=== PATIENT | male | born 1960 | race Caucasian/White ===

== ENCOUNTER 2019-04-02 21:02 | Inpatient (IN) | payer MEDICAID ==
--- NOTE | 2019-04-02 21:22 | ER Document Report ---
ED Respiratory Problem - General Chief Complaint: Shortness Of Breath Stated Complaint: DIFFICULTY BREATHING Time Seen by Provider: 04/02/19 21:22 Mode of Arrival: Medic Information source: Patient Cannot obtain history due to: Other - Respiratory distress on arrival. TRAVEL OUTSIDE OF THE [place] IN LAST 30 DAYS: No - HPI Onset: Other - Unknown time. EMS received a call to come to the scene of his residence and found patient in respiratory distress with hypoxia sats were in the 80s. They applied CPAP and breathing treatments in route. By the time of arrival to the ED sats were in the 90s. Severity: Moderate Short of Breath: Severe Cough: Nonproductive EMS treatments: Bronchodilators, Oxygen Associated symptoms: Difficulty breathing, Wheezing Similar symptoms previously: Yes Recently seen / treated by doctor: Yes - Unknown time of seen physician in the past - Related Data Allergies/Adverse Reactions: aspirin [Aspirin] Allergy (Verified 11/21/12 12:54) Home Medications: Isosorbide, Lasix, Metoprolol, Spirinolactone, Past Medical History - Social History Smoking Status: Unknown if Ever Smoked Lives with: Family Family History: Reviewed & Not Pertinent Patient has suicidal ideation: No Patient has homicidal ideation: No - Past Medical History Cardiac Medical History: Reports: Hx Heart Attack, Hx Hypercholesterolemia, Hx Hypertension Pulmonary Medical History: Reports: Hx COPD Past Surgical History: Reports: Hx Cardiac Catheterization - X 3, no stents Review of Systems - Review of Systems Respiratory: Short of breath Physical Exam - Vital signs Vitals: Resp Pulse Ox 21 H 98 04/02/19 21:05 04/02/19 21:05 Interpretation: Normal - Notes Notes: Significant severe shortness of breath on arrival on CPAP. Patient was lethargic appearing. - General General appearance: Appears well, Alert - HEENT Head: Normocephalic, Atraumatic Eyes: Normal Pupils: PERRL - Respiratory Respiratory status: Respiratory distress, Depressed respirations, Labored, Tachypnea - With a long Chest status: Nontender Breath sounds: Normal, Decreased air movement Chest palpation: Normal - Cardiovascular Rhythm: Regular Heart sounds: Normal auscultation Murmur: No - Abdominal Inspection: Normal Distension: No distension Bowel sounds: Normal Tenderness: Nontender Organomegaly: No organomegaly - Back Back: Normal, Nontender - Extremities General upper extremity: Normal inspection, Nontender, Normal color, Normal ROM, Normal temperature General lower extremity: Normal inspection, Nontender, Normal color, Normal ROM, Normal temperature, Normal weight bearing. No: Samantha's sign Calf: Other - Brawny edema in both lower extremities down to the feet Ankle: Edema Foot: Edema - Neurological Neuro grossly intact: Yes Cognition: Normal Orientation: AAOx4 [place] Coma Scale Eye Opening: Spontaneous [place] Coma Scale Verbal: Oriented [place] Coma Scale Motor: Obeys Commands [place] Coma Scale Total: 15 Speech: Normal Motor strength normal: LUE, RUE, LLE, RLE Sensory: Normal - Psychological Associated symptoms: Normal affect, Normal mood - Skin Skin Temperature: Warm Skin Moisture: Dry Skin Color: Normal, Blackened Skin irregularity: Plaque, Rash Location of irregularity: Other - Lower extremity Character of irregularity: Other - Dry plaque like hypertrophied skin scaly in nature Irregularity with: Scaling, Crusting Course - Re-evaluation Re-evalutation: 04/03/19 06:51 Resting comfortably. Diuresed 2300 mm mils of urine after IV Lasix. Pulse oximetry shows 91 to 93% on biPAP. - Vital Signs Vital signs: Temp Pulse Resp BP Pulse Ox 98.4 F 88 26 H 163/85 H 92 04/03/19 03:51 04/03/19 03:51 04/03/19 04:29 04/03/19 03:51 04/03/19 04:29 - Laboratory Result Diagrams: 04/02/19 20:50 04/03/19 04:56 Laboratory results interpreted by me: 04/02/19 04/02/19 04/02/19 20:50 20:50 20:50 MCV 98 H RDW 16.0 H D-Dimer 1.15 H Carbonic Acid ABG pCO2 ABG pO2 ABG O2 Saturation Creatine Kinase 31 L NT-Pro-B Natriuret Pep Urine Protein Urine Ketones Urine Urobilinogen 04/02/19 04/02/19 04/02/19 20:50 22:04 22:08 MCV RDW D-Dimer Carbonic Acid 1.01 L ABG pCO2 33.7 L ABG pO2 59.5 L ABG O2 Saturation 92.2 L Creatine Kinase NT-Pro-B Natriuret Pep 4680 H Urine Protein 30 H Urine Ketones 20 H Urine Urobilinogen 4.0 H - Diagnostic Test Radiology reviewed: Image reviewed, Reports reviewed Critical Care Note - Critical Care Note Total time excluding time spent on procedures (mins): 40 Discharge - Discharge Clinical Impression: Hypoxia CHF (congestive heart failure) Qualifiers: Heart failure type: unspecified Heart failure chronicity: acute on chronic Qualified Code(s): I50.9 - Heart failure, unspecified COPD (chronic obstructive pulmonary disease) Qualifiers: COPD type: COPD with acute exacerbation Qualified Code(s): J44.1 - Chronic obstructive pulmonary disease with (acute) exacerbation Condition: Fair Disposition: ADMITTED INPATIENT Admitting Provider: Luis Eduardo (Hospitalist) Unit Admitted: Telemetry
[2019-04-02] MEDS ORDERED: NORMAL SALINE 500 ML IV ONE (21:34)
[2019-04-02 21:43] LABS: INTERNATIONAL RATION (INR) 1.07; PARTIAL THROMBOPLASTIN TIME 27.5 SEC (23.5-35.8); PROTHROMBIN TIME 13.9 SEC (11.4-15.4)
[2019-04-02 21:44] LABS: ABSOLUTE EOSINOPHILS # (AUTO) 0.1 10^3/uL (0.0-0.6); ABSOLUTE LYMPHOCYTES (AUTO) 1.2 10^3/uL (0.5-4.7); ABSOLUTE MONOCYTES (AUTO) 0.7 10^3/uL (0.1-1.4); ABSOLUTE NEUT (AUTO) 3.8 10^3/uL (1.7-8.2); BASOPHILS % (AUTO) 0.7 % (0-2); EOSINOPHILS % (AUTO) 2.1 % (0-6); HEMATOCRIT 42.7 % (37.9-51.0); HEMOGLOBIN 14.6 g/dL (13.5-17.0); LYMPHOCYTES % (AUTO) 19.8 % (13-45); MEAN CORPUSCULAR HEMOGLOBIN 33.3 pg (27.0-33.4); MEAN CORPUSCULAR HGB CONC 34.1 g/dL (32.0-36.0); MEAN CORPUSCULAR VOLUME 98 fl (80-97); MONOCYTES % (AUTO) 11.7 % (3-13); PLATELET COUNT 152 10^3/uL (150-450); RED BLOOD COUNT 4.38 10^6/uL (4.35-5.55); SEGMENTED NEUTROPHILS % (AUTO) 65.7 % (42-78); TOTAL CELLS COUNTED % (AUTO) 100 %; WHITE BLOOD COUNT 5.8 10^3/uL (4.0-10.5)
[2019-04-02 21:46] LABS: D-DIMER 1.15 ug/mL (0.00-0.50)
[2019-04-02 21:58] LABS: ALKALINE PHOSPHATASE 80 U/L (38-126); ANION GAP 10 (5-19); ASPARTATE AMINO TRANSFERASE 17 U/L (17-59); BILIRUBIN,DIRECT 0.3 mg/dL (0.0-0.4); BILIRUBIN,TOTAL 1.2 mg/dL (0.2-1.3); BLOOD UREA NITROGEN 13 mg/dL (7-20); CALCIUM 8.6 mg/dL (8.4-10.2); CARBON DIOXIDE 27 mmol/L (22-30); CHLORIDE 103 mmol/L (98-107); CREATINE KINASE 31 U/L (55-170); GLUCOSE 96 mg/dL (75-110); POTASSIUM 4.4 mmol/L (3.6-5.0); TOTAL PROTEIN 7.1 g/dL (6.3-8.2)
[2019-04-02 22:18] LABS: APPEARANCE,URINE CLEAR; BILIRUBIN,URINE NEGATIVE (NEGATIVE); COLOR,URINE YELLOW; GLUCOSE, URINE NEGATIVE (NEGATIVE); KETONES,URINE 20 mg/dL (NEGATIVE); LEUKOCYTE ESTERASE,URINE NEGATIVE (NEGATIVE); NITRITE,URINE NEGATIVE (NEGATIVE); PROTEIN,URINE 30 mg/dL (NEGATIVE); URINE SPECIFIC GRAVITY 1.023
[2019-04-02 22:33] LABS: URINE AMPHETAMINES SCREEN NEGATIVE; URINE BARBITURATES SCREEN NEGATIVE; URINE BENZODIAZEPINES SCREEN NEGATIVE; URINE COCAINE SCREEN NEGATIVE; URINE MARIJUANA (THC) SCREEN NEGATIVE; URINE METHADONE SCREEN NEGATIVE; URINE PHENCYCLIDINE SCREEN NEGATIVE
[2019-04-02 22:38] LABS: ARTERIAL BLOOD BASE EXCESS -0.2 mmol/L; ARTERIAL BLOOD H2CO3 1.01 mmol/L (1.05-1.35); ARTERIAL BLOOD HCO3 23.1 mmol/L (20-24); ARTERIAL BLOOD O2 SATURATION 92.2 % (94-98); ARTERIAL BLOOD PCO2 33.7 mmHg (35-45); ARTERIAL BLOOD PH 7.45 (7.35-7.45); ARTERIAL BLOOD PO2 59.5 mmHg (80-100); ARTERIAL BLOOD TOTAL CO2 24.1 mmol/L (23-27)
[2019-04-02 22:39] LABS: ARTERIAL BLOOD FIO2 50%
[2019-04-02] MEDS ORDERED: FUROSEMIDE INJ/PF 20 MG/2 ML SDV IV ONE (22:53)
--- NOTE | 2019-04-02 22:53 | RADIOLOGY REPORT (SQ) ---
EXAM DESCRIPTION: XR ABDOMEN SUPINE AND ERECT WITH CHEST (ABD ACUTE SERIES) COMPLETED DATE/TME: 04/02/2019 21:29 CLINICAL HISTORY: 58 years, Male, sobr/abd distension COMPARISON: 11/21/2012 chest NUMBER OF VIEWS: 3 TECHNIQUE: Upright chest with supine and erect views of the abdomen LIMITATIONS: None. FINDINGS: Cardiomegaly. The bowel gas pattern is nonspecific. Osteopenia. Increased opacity over the lateral left lung base is likely secondary to overlying soft tissues. However there is also some retrocardiac infiltrate suggested. No pneumothorax. No free air under the hemidiaphragms. Nonspecific nonobstructive bowel gas pattern. Abundant stool in the colon. IMPRESSION: Cardiomegaly. Retrocardiac infiltrate. Nonspecific, nonobstructive bowel gas pattern copyright 2010 [employer]- All Rights Reserved
[2019-04-02] MEDS ORDERED: CEFTRIAXONE INJ 1000 MG VIAL IV ONE (23:00)
--- NOTE | 2019-04-03 01:17 | RADIOLOGY REPORT (SQ) ---
CLINICAL HISTORY: SOBr/elevated d-dimer COMPARISON: None. TECHNIQUE: CT CHEST ANGIOGRAPHY WITHOUT THEN WITH IV CONTRAST on 04/02/2019 11:08 PM [facility] [employer] [facility]. MIPS reconstructions were generated. This exam was performed according to our departmental dose-optimization program, which includes automated exposure control, adjustment of the mA and/or kV according to patient size and/or use of iterative reconstruction technique. MIP images were generated. FINDINGS: Thoracic aorta is normal in course and caliber without aneurysm or dissection. Pulmonary arteries are adequately opacified without acute or chronic filling defects. The heart is moderately enlarged. There is no pericardial effusion. Intrathoracic lymph nodes are not enlarged. There is no pleural effusion, pleural thickening or pneumothorax. Central airways are patent. There is patchy airspace disease in both lower lobes as well as the left upper lobe. There are no acute abnormalities within the limited images of the upper abdomen. There are no acute osseous findings. No suspicious bony lesions. IMPRESSION: Patchy areas of possible pneumonia bilaterally. Cardiomegaly with no aortic dissection or aneurysm. No pulmonary embolus.
[2019-04-03] MEDS ORDERED: PROMETHAZINE HCL INJ 25 MG/1 ML VIAL IV PRN (03:23)
[2019-04-03] MEDS ORDERED: ACETAMINOPHEN 325 MG TABLET PO PRN (03:23)
[2019-04-03] MEDS ORDERED: MAG HYDROX/AL HYDROX/SIMETH SUSP 30 ML UDCUP PO PRN (03:23)
[2019-04-03] MEDS ORDERED: MAGNESIUM HYDROXIDE SUSP 30 ML UDCUP PO PRN (03:23)
[2019-04-03] MEDS ORDERED: NICOTINE 21 MG/24 HR PATCH.TD24 TD PRN (03:30)
[2019-04-03] MEDS ORDERED: HYDRALAZINE HCL INJ/PF 20 MG/1 ML SDV IV PRN (03:30)
[2019-04-03] MEDS ORDERED: METOPROLOL TARTRATE PF/INJ 5 MG/5 ML SDV IV PRN (03:30)
[2019-04-03] MEDS ORDERED: MORPHINE SULFATE 10 MG/ML INJ IV PRN (03:30)
--- NOTE | 2019-04-03 04:57 | PDOC H&P ---
History of Present Illness Admission Date/PCP: 04/03/19 02:20 SHAYAN WEST MD Patient complains of: Dyspnea History of Present Illness: BERNICE KHAN is a 58 year old male who presents the emergency room with acute dyspnea. He admits developing severe dyspnea short time before his arrival in the emergency room. His dyspnea was worsened by any activity or exertion and was accompanied by severe air hunger, increase in swelling of his bilateral his lower extremities and orthopnea. He denies other associated or accompanying signs and symptoms. He denies prior similar episodes. He has not identified any additional aggravating or ameliorating factors for his acute dyspnea. EMS [facility] arrival found the patient have an O2 sat of 80% and treated him with CPAP in route. Upon arrival in the ER patient was converted to BiPAP and had some improvement in his respiratory status. Additionally he was given IV Lasix and had a diuresis of greater than 2000 mL noted. Patient's BNP was also noted to be elevated at greater than 4000 and he was subsequently admitted to the hospital for further evaluation and treatment. Patient is noted to be fairly uncooperative with very short answers due to his dyspnea and frequently not answering at all due to lack of cooperation. Past Medical History Past Medical History: Patient is noted to be fairly uncooperative with very short answers due to his dyspnea and frequently not answering at all due to lack of cooperation. Some information is taken from the best available reliable source. Cardiac Medical History: Reports: Congestive Heart Failure, Coronary Artery Disease, Myocardial Infarction, Hyperlipidema, Hypertension Pulmonary Medical History: Reports: Chronic Obstructive Pulmonary Disease (COPD) Denies: Asthma, Respiratory Failure EENT Medical History: Denies: Cataracts, Ears - Hearing aids Neurological Medical History: Denies: Hemorrhagic CVA, Ischemic CVA, Seizures Endocrine Medical History: Denies: Diabetes Mellitus Type 1, Diabetes Mellitus Type 2, Hyperthyroidism, Hypothyroidism Renal/ Medical History: Denies: Chronic Kidney Disease, Nephrolithiasis Malignancy Medical History: Reports: None GI Medical History: Denies: Cirrhosis, Crohn's Disease, Hepatitis, Ulcerative Colitis Musculoskeltal Medical History: Denies: Arthritis, Gout Skin Medical History: Reports: Other - Chronic severe venous stasis skin changes of the lower extremities Denies: Eczema, Psoriasis Psychiatric Medical History: Reports: Tobacco Dependency Denies: Alcohol Dependency, Substance Abuse Traumatic Medical History: Reports: None Hematology: Denies: Anemia, Bleeding Tendencies Infectious Medical History: Reports: None Past Surgical History Past Surgical History: Reports: Cardiac Catheterization - X 3, no stents Social History Information Source: Patient Lives with: Alone Smoking Status: Current Every Day Smoker Electronic Cigarette use?: No Frequency of Alcohol Use: Occasional Hx Recreational Drug Use: No Drugs: None Hx Prescription Drug Abuse: No - Advance Directive Resuscitation Status: Full Code Surrogate healthcare decision maker:: Trent Duval Family History Family History: Patient would not provide information Parental Family History Reviewed: No Children Family History Reviewed: No Sibling(s) Family History Reviewed.: No Medication/Allergy Home Medications: Bumetanide [Bumex 1 mg Tablet] 1 tab PO DAILY 11/21/12 Furosemide [Lasix 40 mg Tablet] 10 mg PO QAM #30 tablet 11/21/12 Allergies/Adverse Reactions: aspirin [Aspirin] Allergy (Verified 11/21/12 12:54) Review of Systems Constitutional: ABSENT: chills, fever(s) Eyes: ABSENT: visual disturbances, other - Eye pain Ears: ABSENT: hearing changes, other - Ear pain Nose, Mouth, and Throat: ABSENT: headache(s), mouth pain, sore throat Cardiovascular: PRESENT: dyspnea on exertion, edema, orthropnea. ABSENT: chest pain, palpitations Respiratory: PRESENT: as per HPI, dyspnea. ABSENT: cough Gastrointestinal: ABSENT: abdominal pain, constipation, diarrhea, nausea, vomiting Genitourinary: ABSENT: dysuria, hematuria Musculoskeletal: ABSENT: back pain, joint swelling, muscle weakness Integumentary: ABSENT: pruritus, rash Neurological: ABSENT: confusion, convulsions, focal weakness, memory loss, syncope Psychiatric: ABSENT: anxiety, depression Endocrine: ABSENT: cold intolerance, heat intolerance Hematologic/Lymphatic: ABSENT: easy bleeding, easy bruising Allergic/Immunologic: ABSENT: seasonal rhinorrhea Physical Exam Vital Signs: Temp Pulse Resp BP Pulse Ox 97.6 F 22 H 146/75 H 91 L 04/02/19 21:25 04/03/19 02:01 04/03/19 02:01 04/03/19 02:01 Intake & Output 04/01/19 04/02/19 04/03/19 23:59 23:59 23:59 Intake Total 85 Output Total 3200 Balance 85 -3200 General appearance: PRESENT: no acute distress, cooperative, morbidly obese Head exam: PRESENT: atraumatic, normocephalic Eye exam: PRESENT: conjunctiva pink. ABSENT: conjunctival injection, scleral icterus Ear exam: PRESENT: normal external ear exam. ABSENT: bleeding, drainage Mouth exam: PRESENT: dry mucosa, neck supple Neck exam: PRESENT: JVD - Bilateral at 30 degrees. ABSENT: thyromegaly, tracheal deviation Respiratory exam: PRESENT: decreased breath sounds - Breath sounds decreased at the bases bilaterally, prolonged expiratory phas - Minimally prolonged expiratory phase noted, rales - Fine rales noted in the bilateral lower one half of both lung blanco, symmetrical, wheezes - Minimal expiratory wheezes noted Cardiovascular exam: PRESENT: gallop - S4 gallop rhythm, RRR. ABSENT: clicks, rubs Pulses: PRESENT: normal radial pulses, normal dorsalis pedis pul Vascular exam: PRESENT: normal capillary refill. ABSENT: pallor GI/Abdominal exam: PRESENT: normal bowel sounds, soft Rectal exam: PRESENT: deferred Extremities exam: PRESENT: pedal edema - 3+ pitting edema, other - 3+ pitting edema of the bilateral lower extremities to the mid thighs. ABSENT: joint swelling Musculoskeletal exam: ABSENT: deformity, dislocation Neurological exam: PRESENT: alert, oriented to person, oriented to place, oriented to time, oriented to situation, CN II-XII grossly intact, motor sensory deficit Psychiatric exam: PRESENT: appropriate affect, normal mood Skin exam: PRESENT: dry, intact, warm, other - Chronic venous stasis skin changes of the bilateral lower extremities noted. ABSENT: jaundice, rash, urticaria Results Laboratory Results: 04/02/19 20:50 04/02/19 20:50 04/02/19 04/02/19 04/02/19 20:50 20:50 20:50 WBC 5.8 RBC 4.38 Hgb 14.6 Hct 42.7 MCV 98 H MCH 33.3 MCHC 34.1 RDW 16.0 H Plt Count 152 Seg Neutrophils % 65.7 Carbonic Acid HCO3/H2CO3 Ratio ABG pH ABG pCO2 ABG pO2 ABG HCO3 ABG O2 Saturation ABG Base Excess FiO2 Sodium 139.7 Potassium 4.4 Chloride 103 Carbon Dioxide 27 Anion Gap 10 BUN 13 Creatinine 0.94 Est GFR ( Amer) > 60 Glucose 96 Lactic Acid Calcium 8.6 Total Bilirubin 1.2 AST 17 Alkaline Phosphatase 80 Total Protein 7.1 Albumin 4.0 Lipase 57.2 Urine Color Urine Appearance Urine pH Ur Specific [place] Urine Protein Urine Glucose (UA) Urine Ketones Urine Blood Urine Nitrite Ur Leukocyte Esterase Urine WBC (Auto) Urine RBC (Auto) 04/02/19 04/02/19 04/02/19 21:10 22:04 22:08 WBC RBC Hgb Hct MCV MCH MCHC RDW Plt Count Seg Neutrophils % Carbonic Acid 1.01 L HCO3/H2CO3 Ratio 22:1 ABG pH 7.45 ABG pCO2 33.7 L ABG pO2 59.5 L ABG HCO3 23.1 ABG O2 Saturation 92.2 L ABG Base Excess -0.2 FiO2 50% Sodium Potassium Chloride Carbon Dioxide Anion Gap BUN Creatinine Est GFR ( Amer) Glucose Lactic Acid 1.4 Calcium Total Bilirubin AST Alkaline Phosphatase Total Protein Albumin Lipase Urine Color YELLOW Urine Appearance CLEAR Urine pH 6.0 Ur Specific [place] 1.023 Urine Protein 30 H Urine Glucose (UA) NEGATIVE Urine Ketones 20 H Urine Blood NEGATIVE Urine Nitrite NEGATIVE Ur Leukocyte Esterase NEGATIVE Urine WBC (Auto) 1 Urine RBC (Auto) 3 04/02/19 04/02/19 04/02/19 20:50 20:50 20:50 Creatine Kinase 31 L Troponin I < 0.012 NT-Pro-B Natriuret Pep 4680 H Impressions: Acute Abdomen Series 04/02/19 21:29 IMPRESSION: Cardiomegaly. Retrocardiac infiltrate. Nonspecific, nonobstructive bowel gas pattern copyright 2011 [employer]- All Rights Reserved Chest/Abdomen CTA 04/02/19 23:08 IMPRESSION: Patchy areas of possible pneumonia bilaterally. Cardiomegaly with no aortic dissection or aneurysm. No pulmonary embolus. Assessment and Plan - Diagnosis (1) Acute pulmonary edema with congestive heart failure Is this a current diagnosis for this admission?: Yes (2) Acute respiratory failure with hypoxia Is this a current diagnosis for this admission?: Yes (3) Acute on chronic diastolic congestive heart failure Is this a current diagnosis for this admission?: Yes (4) COPD (chronic obstructive pulmonary disease) Qualifiers: COPD type: unspecified COPD Qualified Code(s): J44.9 - Chronic obstructive pulmonary disease, unspecified Is this a current diagnosis for this admission?: Yes - Plan Summary Summary: Patient will be admitted to the medical floor on telemetry and will receive the customary supportive and symptomatic treatments. He will be seen in consultation by Dr. West for further evaluation and treatment of his congestive heart failure. He will be treated initially with a IV Bumex 1 mg every 6 hours. He will also be treated with Nitrol 2% ointment 1 g applied every 6 hours. He will receive morphine sulfate 2 mg IV every hour as needed severe dyspnea. Serial cardiac enzymes will be obtained. CBCs and metabolic profiles with magnesium levels will be obtained as needed. - Time Time Spent with patient: 15-24 minutes Medications reviewed and adjusted accordingly: Yes Anticipated discharge: Home with Homehealth - Inpatient Certification Based on my medical assessment, after consideration of the patient's comorbidities, presenting symptoms, or acuity I expect that the services needed warrant INPATIENT care.: Yes I certify that my determination is in accordance with my understanding of Medicare's requirements for reasonable and necessary INPATIENT services [42 CFR 412.3e].: Yes Medical Necessity: Significant Comorbidiites Make Outpatient Treatment Too Risky, Need Close Monitoring Due to Risk of Patient Decompensation, Need For Continuous Telemetry Monitoring, Need for Nebulizer Therapy and Monitoring of Response, Risk of Complication if Not Cared For in Hospital
[2019-04-03 05:46] LABS: CREATINE KINASE MB 0.38 ng/mL (<4.55)
[2019-04-03 05:55] LABS: TROPONIN I < 0.012 ng/mL
[2019-04-03 05:57] LABS: ANION GAP 11 (5-19); BLOOD UREA NITROGEN 12 mg/dL (7-20); CALCIUM 9.1 mg/dL (8.4-10.2); CARBON DIOXIDE 29 mmol/L (22-30); CHLORIDE 100 mmol/L (98-107); GLUCOSE 88 mg/dL (75-110)
[2019-04-03] MEDS: HEPARIN SOD (PORCINE) 5,000 UNIT/ML 1 ML VIAL SUBCUT SCH ×3 (06:46→21:12)
[2019-04-03] MEDS: BUMETANIDE INJ/PF 1 MG/4 ML SDV IV SCH ×3 (06:46→17:27)
[2019-04-03] MEDS: NITROGLYCERIN 2% OINTMENT 1 GM PACKET TP SCH ×3 (06:46→17:27)
[2019-04-03] MEDS: FAMOTIDINE 20 MG TABLET PO SCH ×2 (09:31→21:12)
[2019-04-03] MEDS: CLOPIDOGREL BISULFATE 75 MG TABLET PO SCH (09:31)
[2019-04-03] MEDS: AZITHROMYCIN 500 MG in DEXTROSE 5%-WATER 250 ML IV SCH (09:31)
[2019-04-03] MEDS: POTASSIUM CHLORIDE 10 MEQ TABLET.ER PO SCH ×3 (09:31→17:27)
[2019-04-03] MEDS: DOCUSATE SODIUM 100 MG CAPSULE PO SCH (09:31)
[2019-04-03] MEDS: CEFEPIME 1 GM/D5W RTU 1 GM/50 ML RTUPB IV SCH ×2 (09:32→21:12)
[2019-04-03] MEDS ORDERED: INFLUENZA QUAD (6MOS+) 2019-20 VAC 0.5 ML SYR IM ONE (10:08)
[2019-04-03 10:55] LABS: CREATINE KINASE MB < 0.22 ng/mL (<4.55); TROPONIN I < 0.012 ng/mL
[2019-04-03 15:24] LABS: TROPONIN I 0.013 ng/mL
[2019-04-03 15:27] LABS: CREATINE KINASE MB < 0.22 ng/mL (<4.55)
--- NOTE | 2019-04-03 15:58 | Progress Note ---
Provider Note Provider Note: Patient was admitted to the hospital after midnight probable pneumonia. Still on BiPAP and seemed to improve Morning on rounds patient was asleep Dr. Diaz has been consulted. Patient currently on IV Bumex Nitropaste and morphine as needed D-dimer was elevated on admission but CT angiogram only showed pneumonia no PE Patient currently on cefepime and Zithromax. We will continue treatment for pneumonia and CHF BNP is elevated to 4000 Troponin x3 are negative
--- NOTE | 2019-04-03 19:26 | EKG REPORT ---
SEVERITY:- ABNORMAL ECG - SINUS RHYTHM PAIRED VENTRICULAR PREMATURE COMPLEXES LEFT ANTERIOR FASCICULAR BLOCK BORDERLINE T ABNORMALITIES, ANT-LAT LEADS PROLONGED QT INTERVAL : Confirmed by: Susan Diaz MD 03-Apr-2019 19:25:35
[2019-04-04] MEDS: BUMETANIDE INJ/PF 1 MG/4 ML SDV IV SCH ×5 (01:10→23:44)
[2019-04-04] MEDS: NITROGLYCERIN 2% OINTMENT 1 GM PACKET TP SCH ×5 (01:10→23:44)
[2019-04-04 06:31] LABS: ABSOLUTE EOSINOPHILS # (AUTO) 0.1 10^3/uL (0.0-0.6); ABSOLUTE MONOCYTES (AUTO) 0.6 10^3/uL (0.1-1.4); ABSOLUTE NEUT (AUTO) 3.4 10^3/uL (1.7-8.2); BASOPHILS % (AUTO) 0.5 % (0-2); EOSINOPHILS % (AUTO) 2.2 % (0-6); HEMATOCRIT 40.6 % (37.9-51.0); MEAN CORPUSCULAR HGB CONC 34.3 g/dL (32.0-36.0); MEAN CORPUSCULAR VOLUME 96 fl (80-97); MONOCYTES % (AUTO) 11.9 % (3-13); PLATELET COUNT 131 10^3/uL (150-450); RED BLOOD COUNT 4.23 10^6/uL (4.35-5.55); RED CELL DISTRIBUTION WIDTH 15.9 % (11.5-14.0); SEGMENTED NEUTROPHILS % (AUTO) 65.4 % (42-78); TOTAL CELLS COUNTED % (AUTO) 100 %; WHITE BLOOD COUNT 5.1 10^3/uL (4.0-10.5)
[2019-04-04] MEDS: HEPARIN SOD (PORCINE) 5,000 UNIT/ML 1 ML VIAL SUBCUT SCH ×3 (06:39→21:16)
[2019-04-04 07:01] LABS: ANION GAP 10 (5-19); BLOOD UREA NITROGEN 16 mg/dL (7-20); CALCIUM 8.3 mg/dL (8.4-10.2); CARBON DIOXIDE 32 mmol/L (22-30); CHLORIDE 95 mmol/L (98-107); CHOLESTEROL 179.99 mg/dL (0-200); GLUCOSE 85 mg/dL (75-110); POTASSIUM 3.9 mmol/L (3.6-5.0); TRIGLYCERIDES 73 mg/dL (<150)
[2019-04-04 07:11] LABS: DIRECT LDL 118 mg/dL (<100)
[2019-04-04 10:08] LABS: FREE T3 2.12 pg/mL (2.77-5.27); FREE T4 (FREE THYROXINE) 1.58 ng/dL (0.78-2.19)
[2019-04-04 10:22] LABS: THYROID STIMULATING HORMONE 5.64 uIU/mL (0.47-4.68)
[2019-04-04] MEDS: DOCUSATE SODIUM 100 MG CAPSULE PO SCH (10:45)
[2019-04-04] MEDS: CLOPIDOGREL BISULFATE 75 MG TABLET PO SCH (10:45)
[2019-04-04] MEDS: FAMOTIDINE 20 MG TABLET PO SCH ×2 (10:45→22:39)
[2019-04-04] MEDS: CEFEPIME 1 GM/D5W RTU 1 GM/50 ML RTUPB IV SCH ×2 (10:46→22:41)
[2019-04-04] MEDS: POTASSIUM CHLORIDE 10 MEQ TABLET.ER PO SCH ×3 (10:46→18:12)
[2019-04-04] MEDS: AZITHROMYCIN 500 MG in DEXTROSE 5%-WATER 250 ML IV SCH (10:47)
--- NOTE | 2019-04-04 15:35 | PDOC PROGRESS REPORT ---
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 ABSENT: diastolic murmur, rubs, systolic murmur Neurological exam: PRESENT: alert, awake, oriented to person, oriented to place, oriented to time, oriented to situation, CN II-XII grossly intact, other - Patient is asleep but arouses easily. Speaks in full sentences. Patient is alert and oriented. ABSENT: motor sensory deficit Psychiatric exam: PRESENT: appropriate affect, normal mood. ABSENT: homicidal ideation, suicidal ideation Results Laboratory Results: 04/04/19 05:42 04/04/19 05:42 04/04/19 04/04/19 04/04/19 05:42 05:42 05:42 WBC 5.1 RBC 4.23 L Hgb 14.0 Hct 40.6 MCV 96 MCH 33.0 MCHC 34.3 RDW 15.9 H Plt Count 131 L Seg Neutrophils % 65.4 Sodium 137.0 Potassium 3.9 Chloride 95 L Carbon Dioxide 32 H Anion Gap 10 BUN 16 Creatinine 1.04 Est GFR ( Amer) > 60 Glucose 85 Calcium 8.3 L Magnesium 1.4 L Triglycerides 73 Cholesterol 179.99 LDL Cholesterol Direct 118 H VLDL Cholesterol 15.0 HDL Cholesterol 43 TSH 5.64 H Free T4 1.58 Free T3 pg/mL 2.12 L 04/02/19 22:04 Catheterized Urine Urine Culture - Final NO GROWTH 2 DAYS 04/02/19 04/02/19 04/02/19 20:50 20:50 20:50 Creatine Kinase 31 L CK-MB (CK-2) Troponin I < 0.012 NT-Pro-B Natriuret Pep 4680 H 04/03/19 04/03/19 04/03/19 04:56 04:56 10:09 Creatine Kinase 43 L 31 L CK-MB (CK-2) 0.38 Troponin I < 0.012 NT-Pro-B Natriuret Pep 04/03/19 04/03/19 04/03/19 10:09 14:15 14:25 Creatine Kinase 31 L CK-MB (CK-2) < 0.22 < 0.22 Troponin I < 0.012 0.013 NT-Pro-B Natriuret Pep Impressions: Acute Abdomen Series 04/02/19 21:29 IMPRESSION: Cardiomegaly. Retrocardiac infiltrate. Nonspecific, nonobstructive bowel gas pattern copyright 2010 [employer]- All Rights Reserved Chest/Abdomen CTA 04/02/19 23:08 IMPRESSION: Patchy areas of possible pneumonia bilaterally. Cardiomegaly with no aortic dissection or aneurysm. No pulmonary embolus. Assessment and Plan - Diagnosis (1) Pneumonia Is this a current diagnosis for this admission?: Yes (2) Acute on chronic diastolic congestive heart failure Is this a current diagnosis for this admission?: Yes (3) COPD (chronic obstructive pulmonary disease) Qualifiers: COPD type: COPD with acute exacerbation Qualified Code(s): J44.1 - Chronic obstructive pulmonary disease with (acute) exacerbation Is this a current diagnosis for this admission?: Yes (4) Hypoxia Is this a current diagnosis for this admission?: Yes - Plan Summary Summary: Patient will be admitted to the medical floor on telemetry and will receive the customary supportive and symptomatic treatments. He will be seen in consultation by Dr. Diaz for further evaluation and treatment of his congestive heart failure. He will be treated initially with a IV Bumex 1 mg every 6 hours. He will also be treated with Nitrol 2% ointment 1 g applied every 6 hours. He will receive morphine sulfate 2 mg IV every hour as needed severe dyspnea. Serial cardiac enzymes will be obtained. CBCs and metabolic profiles with magnesium levels will be obtained as needed. 04/04/2019 Temperature 99.3. As of 80 blood pressure on 5 and half liters WBCs 5.1 cultures so far are negative Dr. Diaz has seen the patient but unfortunately the consult note is absent, what looks to be a computer error. I will discuss this with him. Patient currently on cefepime and Zithromax Patient also on IV Bumex Patient did have a CT angiogram on admission for an elevated d-dimer which showed possible pneumonia bilaterally, lower lobes as well as the left upper lobe however no pulmonary embolism Patient is being seen by discharge planning because he lives alone at home. Continue IV antibiotics continue Bumex. We will recheck labs in the morning. - Time Time Spent with patient: 25-34 minutes
--- NOTE | 2019-04-04 16:32 | Progress Note ---
Provider Note Provider Note: CARDIOLOGY PROGRESS NOTE by Dr. Susan Alex on 04/04/2019. OBJECTIVE: The patient is very hard of hearing and appears to be difficult to communicate with. He does appear to be short of breath and is on the BiPAP. He still has some wheezing and shortness of breath. He denies chest pain. His leg edema is chronic and present with chronic venous stasis dermatitis. There is no atrial or ventricular arrhythmia seen on the monitor except for some PVCs. The patient moves all 4 extremities since there is no TIA CVA symptoms. The patient is known for noncompliance, with him missing office visits, and canceling test. Also lack of transportation is adds to this noncompliance. PHYSICAL EXAMINATION: The patient is morbidly obese. In mild respiratory distress. Selected Entries 04/04/19 04/04/19 15:41 19:00 Temperature 98.4 F Temperature Oral Source Pulse Rate 87 Respiratory 22 H Rate Blood Pressure 122/57 L Blood Pressure 78 Mean BP Location Left Arm BP Position Supine O2 Sat by Pulse 95 Oximetry Oxygen Delivery Bipap Method Percent of 40 Oxygen HEAD: Is atraumatic normocephalic. EYES: Pupils are equal round regular reactive light accommodation. ENT is negative. NECK: Supple. There is mild JVD present. Carotids are equal there is no bruit. There is no lymphadenopathy. There is no goiter. There is no accessory muscle respiration use. Trachea central. LUNGS: There is diminished air entry prolonged expiration. There is scattered wheezing and rhonchi. There is bibasilar rales of CHF. HEART: S1-S2 is heard. There is no S3 gallop. There is no S4 gallop. There is systolic murmur left sternal border and the apex there is no rub. ABDOMEN: Is obese. Nontender. There is no paraspinal megaly. Bowel sounds are well heard. EXTREMITIES: Femorals are difficult to palpate. There is no femoral bruits. Unable to palpate leg pulses. There is 2+ bilateral leg edema with chronic venous stasis dermatitis changes. 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 PSYCHIATRIC: Unable to make a psychiatric exam due to the lack of communication with the patient due to his severe hearing loss. He does not appear to be agitated or anxious. Labs- Entire Visit 04/02/19 04/02/19 04/02/19 20:50 20:50 20:50 WBC 5.8 RBC 4.38 Hgb 14.6 Hct 42.7 MCV 98 H MCH 33.3 MCHC 34.1 RDW 16.0 H Plt Count 152 Lymph % (Auto) 19.8 Piute % (Auto) 11.7 Eos % (Auto) 2.1 Baso % (Auto) 0.7 Absolute Neuts (auto) 3.8 Absolute Lymphs (auto) 1.2 Absolute Monos (auto) 0.7 Absolute Eos (auto) 0.1 Absolute Basos (auto) 0.0 Seg Neutrophils % 65.7 PT 13.9 INR 1.07 APTT 27.5 D-Dimer 1.15 H Carbonic Acid HCO3/H2CO3 Ratio ABG pH ABG pCO2 ABG pO2 ABG HCO3 ABG Total CO2 ABG O2 Saturation ABG Base Excess FiO2 Sodium 139.7 Potassium 4.4 Chloride 103 Carbon Dioxide 27 Anion Gap 10 BUN 13 Creatinine 0.94 Est GFR ( Amer) > 60 Est GFR (MDRD) Non-Af > 60 Glucose 96 POC Glucose Hemoglobin A1c % Lactic Acid Calcium 8.6 Magnesium Total Bilirubin 1.2 Direct Bilirubin 0.3 Neonat Total Bilirubin Not Reportable Neonat Direct Bilirubin Not Reportable Neonat Indirect Bili Not Reportable AST 17 ALT 12 Alkaline Phosphatase 80 Creatine Kinase 31 L CK-MB (CK-2) Troponin I NT-Pro-B Natriuret Pep Total Protein 7.1 Albumin 4.0 Triglycerides Cholesterol LDL Cholesterol Direct VLDL Cholesterol HDL Cholesterol Lipase TSH Free T4 Free T3 pg/mL Urine Color Urine Appearance Urine pH Ur Specific [place] Urine Protein Urine Glucose (UA) Urine Ketones Urine Blood Urine Nitrite Urine Bilirubin Urine Urobilinogen Ur Leukocyte Esterase Urine WBC (Auto) Urine RBC (Auto) U Hyaline Cast (Auto) Urine Bacteria (Auto) Squamous Epi Cells Auto Urine Mucus (Auto) Urine Ascorbic Acid Urine Opiates Screen Urine Methadone Screen Ur Barbiturates Screen Ur Phencyclidine Scrn Ur Amphetamines Screen U Benzodiazepines Scrn Urine Cocaine Screen U Marijuana (THC) Screen 04/02/19 04/02/19 04/02/19 20:50 20:50 20:50 WBC RBC Hgb Hct MCV MCH MCHC RDW Plt Count Lymph % (Auto) Piute % (Auto) Eos % (Auto) Baso % (Auto) Absolute Neuts (auto) Absolute Lymphs (auto) Absolute Monos (auto) Absolute Eos (auto) Absolute Basos (auto) Seg Neutrophils % PT INR APTT D-Dimer Carbonic Acid HCO3/H2CO3 Ratio ABG pH ABG pCO2 ABG pO2 ABG HCO3 ABG Total CO2 ABG O2 Saturation ABG Base Excess FiO2 Sodium Potassium Chloride Carbon Dioxide Anion Gap BUN Creatinine Est GFR ( Amer) Est GFR (MDRD) Non-Af Glucose POC Glucose Hemoglobin A1c % Lactic Acid Calcium Magnesium Total Bilirubin Direct Bilirubin Neonat Total Bilirubin Neonat Direct Bilirubin Neonat Indirect Bili AST ALT Alkaline Phosphatase Creatine Kinase CK-MB (CK-2) Troponin I < 0.012 NT-Pro-B Natriuret Pep 4680 H Total Protein Albumin Triglycerides Cholesterol LDL Cholesterol Direct VLDL Cholesterol HDL Cholesterol Lipase 57.2 TSH Free T4 Free T3 pg/mL Urine Color Urine Appearance Urine pH Ur Specific [place] Urine Protein Urine Glucose (UA) Urine Ketones Urine Blood Urine Nitrite Urine Bilirubin Urine Urobilinogen Ur Leukocyte Esterase Urine WBC (Auto) Urine RBC (Auto) U Hyaline Cast (Auto) Urine Bacteria (Auto) Squamous Epi Cells Auto Urine Mucus (Auto) Urine Ascorbic Acid Urine Opiates Screen Urine Methadone Screen Ur Barbiturates Screen Ur Phencyclidine Scrn Ur Amphetamines Screen U Benzodiazepines Scrn Urine Cocaine Screen U Marijuana (THC) Screen 04/02/19 04/02/19 04/02/19 21:10 21:22 22:04 WBC RBC Hgb Hct MCV MCH MCHC RDW Plt Count Lymph % (Auto) Piute % (Auto) Eos % (Auto) Baso % (Auto) Absolute Neuts (auto) Absolute Lymphs (auto) Absolute Monos (auto) Absolute Eos (auto) Absolute Basos (auto) Seg Neutrophils % PT INR APTT D-Dimer Carbonic Acid HCO3/H2CO3 Ratio ABG pH ABG pCO2 ABG pO2 ABG HCO3 ABG Total CO2 ABG O2 Saturation ABG Base Excess FiO2 Sodium Potassium Chloride Carbon Dioxide Anion Gap BUN Creatinine Est GFR ( Amer) Est GFR (MDRD) Non-Af Glucose POC Glucose 99 Hemoglobin A1c % Lactic Acid 1.4 Calcium Magnesium Total Bilirubin Direct Bilirubin Neonat Total Bilirubin Neonat Direct Bilirubin Neonat Indirect Bili AST ALT Alkaline Phosphatase Creatine Kinase CK-MB (CK-2) Troponin I NT-Pro-B Natriuret Pep Total Protein Albumin Triglycerides Cholesterol LDL Cholesterol Direct VLDL Cholesterol HDL Cholesterol Lipase TSH Free T4 Free T3 pg/mL Urine Color YELLOW Urine Appearance CLEAR Urine pH 6.0 Ur Specific [place] 1.023 Urine Protein 30 H Urine Glucose (UA) NEGATIVE Urine Ketones 20 H Urine Blood NEGATIVE Urine Nitrite NEGATIVE Urine Bilirubin NEGATIVE Urine Urobilinogen 4.0 H Ur Leukocyte Esterase NEGATIVE Urine WBC (Auto) 1 Urine RBC (Auto) 3 U Hyaline Cast (Auto) 3 Urine Bacteria (Auto) TRACE Squamous Epi Cells Auto <1 Urine Mucus (Auto) MOD Urine Ascorbic Acid NEGATIVE Urine Opiates Screen Urine Methadone Screen Ur Barbiturates Screen Ur Phencyclidine Scrn Ur Amphetamines Screen U Benzodiazepines Scrn Urine Cocaine Screen U Marijuana (THC) Screen 04/02/19 04/02/19 04/03/19 22:04 22:08 04:56 WBC RBC Hgb Hct MCV MCH MCHC RDW Plt Count Lymph % (Auto) Piute % (Auto) Eos % (Auto) Baso % (Auto) Absolute Neuts (auto) Absolute Lymphs (auto) Absolute Monos (auto) Absolute Eos (auto) Absolute Basos (auto) Seg Neutrophils % PT INR APTT D-Dimer Carbonic Acid 1.01 L HCO3/H2CO3 Ratio 22:1 ABG pH 7.45 ABG pCO2 33.7 L ABG pO2 59.5 L ABG HCO3 23.1 ABG Total CO2 24.1 ABG O2 Saturation 92.2 L ABG Base Excess -0.2 FiO2 50% Sodium Potassium Chloride Carbon Dioxide Anion Gap BUN Creatinine Est GFR ( Amer) Est GFR (MDRD) Non-Af Glucose POC Glucose Hemoglobin A1c % Lactic Acid Calcium Magnesium Total Bilirubin Direct Bilirubin Neonat Total Bilirubin Neonat Direct Bilirubin Neonat Indirect Bili AST ALT Alkaline Phosphatase Creatine Kinase 43 L CK-MB (CK-2) Troponin I NT-Pro-B Natriuret Pep Total Protein Albumin Triglycerides Cholesterol LDL Cholesterol Direct VLDL Cholesterol HDL Cholesterol Lipase TSH Free T4 Free T3 pg/mL Urine Color Urine Appearance Urine pH Ur Specific [place] Urine Protein Urine Glucose (UA) Urine Ketones Urine Blood Urine Nitrite Urine Bilirubin Urine Urobilinogen Ur Leukocyte Esterase Urine WBC (Auto) Urine RBC (Auto) U Hyaline Cast (Auto) Urine Bacteria (Auto) Squamous Epi Cells Auto Urine Mucus (Auto) Urine Ascorbic Acid Urine Opiates Screen NEGATIVE Urine Methadone Screen NEGATIVE Ur Barbiturates Screen NEGATIVE Ur Phencyclidine Scrn NEGATIVE Ur Amphetamines Screen NEGATIVE U Benzodiazepines Scrn NEGATIVE Urine Cocaine Screen NEGATIVE U Marijuana (THC) Screen NEGATIVE 04/03/19 04/03/19 04/03/19 04:56 04:56 10:09 WBC RBC Hgb Hct MCV MCH MCHC RDW Plt Count Lymph % (Auto) Piute % (Auto) Eos % (Auto) Baso % (Auto) Absolute Neuts (auto) Absolute Lymphs (auto) Absolute Monos (auto) Absolute Eos (auto) Absolute Basos (auto) Seg Neutrophils % PT INR APTT D-Dimer Carbonic Acid HCO3/H2CO3 Ratio ABG pH ABG pCO2 ABG pO2 ABG HCO3 ABG Total CO2 ABG O2 Saturation ABG Base Excess FiO2 Sodium 140.4 Potassium 4.0 Chloride 100 Carbon Dioxide 29 Anion Gap 11 BUN 12 Creatinine 0.87 Est GFR ( Amer) > 60 Est GFR (MDRD) Non-Af > 60 Glucose 88 POC Glucose Hemoglobin A1c % Lactic Acid Calcium 9.1 Magnesium 1.7 Total Bilirubin Direct Bilirubin Neonat Total Bilirubin Neonat Direct Bilirubin Neonat Indirect Bili AST ALT Alkaline Phosphatase Creatine Kinase 31 L CK-MB (CK-2) 0.38 Troponin I < 0.012 NT-Pro-B Natriuret Pep Total Protein Albumin Triglycerides Cholesterol LDL Cholesterol Direct VLDL Cholesterol HDL Cholesterol Lipase TSH Free T4 Free T3 pg/mL Urine Color Urine Appearance Urine pH Ur Specific [place] Urine Protein Urine Glucose (UA) Urine Ketones Urine Blood Urine Nitrite Urine Bilirubin Urine Urobilinogen Ur Leukocyte Esterase Urine WBC (Auto) Urine RBC (Auto) U Hyaline Cast (Auto) Urine Bacteria (Auto) Squamous Epi Cells Auto Urine Mucus (Auto) Urine Ascorbic Acid Urine Opiates Screen Urine Methadone Screen Ur Barbiturates Screen Ur Phencyclidine Scrn Ur Amphetamines Screen U Benzodiazepines Scrn Urine Cocaine Screen U Marijuana (THC) Screen 04/03/19 04/03/19 04/03/19 10:09 14:15 14:25 WBC RBC Hgb Hct MCV MCH MCHC RDW Plt Count Lymph % (Auto) [place] % (Auto) Eos % (Auto) Baso % (Auto) Absolute Neuts (auto) Absolute Lymphs (auto) Absolute Monos (auto) Absolute Eos (auto) Absolute Basos (auto) Seg Neutrophils % PT INR APTT D-Dimer Carbonic Acid HCO3/H2CO3 Ratio ABG pH ABG pCO2 ABG pO2 ABG HCO3 ABG Total CO2 ABG O2 Saturation ABG Base Excess FiO2 Sodium Potassium Chloride Carbon Dioxide Anion Gap BUN Creatinine Est GFR ( Amer) Est GFR (MDRD) Non-Af Glucose POC Glucose Hemoglobin A1c % Lactic Acid Calcium Magnesium Total Bilirubin Direct Bilirubin Neonat Total Bilirubin Neonat Direct Bilirubin Neonat Indirect Bili AST ALT Alkaline Phosphatase Creatine Kinase 31 L CK-MB (CK-2) < 0.22 < 0.22 Troponin I < 0.012 0.013 NT-Pro-B Natriuret Pep Total Protein Albumin Triglycerides Cholesterol LDL Cholesterol Direct VLDL Cholesterol HDL Cholesterol Lipase TSH Free T4 Free T3 pg/mL Urine Color Urine Appearance Urine pH Ur Specific [place] Urine Protein Urine Glucose (UA) Urine Ketones Urine Blood Urine Nitrite Urine Bilirubin Urine Urobilinogen Ur Leukocyte Esterase Urine WBC (Auto) Urine RBC (Auto) U Hyaline Cast (Auto) Urine Bacteria (Auto) Squamous Epi Cells Auto Urine Mucus (Auto) Urine Ascorbic Acid Urine Opiates Screen Urine Methadone Screen Ur Barbiturates Screen Ur Phencyclidine Scrn Ur Amphetamines Screen U Benzodiazepines Scrn Urine Cocaine Screen U Marijuana (THC) Screen 04/04/19 04/04/19 04/04/19 05:42 05:42 05:42 WBC 5.1 RBC 4.23 L Hgb 14.0 Hct 40.6 MCV 96 MCH 33.0 MCHC 34.3 RDW 15.9 H Plt Count 131 L Lymph % (Auto) 20.0 Pi[place] % (Auto) 11.9 Eos % (Auto) 2.2 Baso % (Auto) 0.5 Absolute Neuts (auto) 3.4 Absolute Lymphs (auto) 1.0 Absolute Monos (auto) 0.6 Absolute Eos (auto) 0.1 Absolute Basos (auto) 0.0 Seg Neutrophils % 65.4 PT INR APTT D-Dimer Carbonic Acid HCO3/H2CO3 Ratio ABG pH ABG pCO2 ABG pO2 ABG HCO3 ABG Total CO2 ABG O2 Saturation ABG Base Excess FiO2 Sodium 137.0 Potassium 3.9 Chloride 95 L Carbon Dioxide 32 H Anion Gap 10 BUN 16 Creatinine 1.04 Est GFR ( Amer) > 60 Est GFR (MDRD) Non-Af > 60 Glucose 85 POC Glucose Hemoglobin A1c % 5.9 Lactic Acid Calcium 8.3 L Magnesium 1.4 L Total Bilirubin Direct Bilirubin Neonat Total Bilirubin Neonat Direct Bilirubin Neonat Indirect Bili AST ALT Alkaline Phosphatase Creatine Kinase CK-MB (CK-2) Troponin I NT-Pro-B Natriuret Pep Total Protein Albumin Triglycerides 73 Cholesterol 179.99 LDL Cholesterol Direct 118 H VLDL Cholesterol 15.0 HDL Cholesterol 43 Lipase TSH Free T4 Free T3 pg/mL Urine Color Urine Appearance Urine pH Ur Specific [place] Urine Protein Urine Glucose (UA) Urine Ketones Urine Blood Urine Nitrite Urine Bilirubin Urine Urobilinogen Ur Leukocyte Esterase Urine WBC (Auto) Urine RBC (Auto) U Hyaline Cast (Auto) Urine Bacteria (Auto) Squamous Epi Cells Auto Urine Mucus (Auto) Urine Ascorbic Acid Urine Opiates Screen Urine Methadone Screen Ur Barbiturates Screen Ur Phencyclidine Scrn Ur Amphetamines Screen U Benzodiazepines Scrn Urine Cocaine Screen U Marijuana (THC) Screen 04/04/19 04/04/19 05:42 16:24 WBC RBC Hgb Hct MCV MCH MCHC RDW Plt Count Lymph % (Auto) [place] % (Auto) Eos % (Auto) Baso % (Auto) Absolute Neuts (auto) Absolute Lymphs (auto) Absolute Monos (auto) Absolute Eos (auto) Absolute Basos (auto) Seg Neutrophils % PT INR APTT D-Dimer Carbonic Acid HCO3/H2CO3 Ratio ABG pH ABG pCO2 ABG pO2 ABG HCO3 ABG Total CO2 ABG O2 Saturation ABG Base Excess FiO2 Sodium 134.9 L Potassium 3.8 Chloride 91 L Carbon Dioxide 31 H Anion Gap 13 BUN 20 Creatinine 1.04 Est GFR ( Amer) > 60 Est GFR (MDRD) Non-Af > 60 Glucose 80 POC Glucose Hemoglobin A1c % Lactic Acid Calcium 8.1 L Magnesium Total Bilirubin Direct Bilirubin Neonat Total Bilirubin Neonat Direct Bilirubin Neonat Indirect Bili AST ALT Alkaline Phosphatase Creatine Kinase CK-MB (CK-2) Troponin I NT-Pro-B Natriuret Pep Total Protein Albumin Triglycerides Cholesterol LDL Cholesterol Direct VLDL Cholesterol HDL Cholesterol Lipase TSH 5.64 H Free T4 1.58 Free T3 pg/mL 2.12 L Urine Color Urine Appearance Urine pH Ur Specific [place] Urine Protein Urine Glucose (UA) Urine Ketones Urine Blood Urine Nitrite Urine Bilirubin Urine Urobilinogen Ur Leukocyte Esterase Urine WBC (Auto) Urine RBC (Auto) U Hyaline Cast (Auto) Urine Bacteria (Auto) Squamous Epi Cells Auto Urine Mucus (Auto) Urine Ascorbic Acid Urine Opiates Screen Urine Methadone Screen Ur Barbiturates Screen Ur Phencyclidine Scrn Ur Amphetamines Screen U Benzodiazepines Scrn Urine Cocaine Screen U Marijuana (THC) Screen Acute Abdomen Series 04/02/19 21:29 IMPRESSION: Cardiomegaly. Retrocardiac infiltrate. Nonspecific, nonobstructive bowel gas pattern copyright 2011 [employer]- All Rights Reserved Chest/Abdomen CTA 04/02/19 23:08 IMPRESSION: Patchy areas of possible pneumonia bilaterally. Cardiomegaly with no aortic dissection or aneurysm. No pulmonary embolus. EKG: SINUS RHYTHM [PVPC] . PAIRED VENTRICULAR PREMATURE COMPLEXES [LAFB] . LEFT ANTERIOR FASCICULAR BLOCK [T0AL] . BORDERLINE T ABNORMALITIES, ANT-LAT LEADS IMPRESSION/RECOMMENDATION: 1. Acute on chronic respiratory failure. This is multifactorial secondary to congestive heart failure, acute exacerbation of COPD and pneumonia. 2. Acute on chronic systolic heart failure: We will start the patient on dobutamine at 2.5mcg/kg/min. Continue his current medication. 3. Acute exacerbation of COPD: Continue bronchodilators and antibiotics and respiratory treatments and steroids. 4. Pneumonia: Continue antibiotics. 5. Coronary artery disease: History of remote myocardial infarction history of stent: Patient without any anginal symptoms. No evidence of acute coronary syndrome 6. Cardiomyopathy: His last echo done in 2016 showed his LV ejection fraction was done normal limits. But not he has not had an echo recently. Will later get an echocardiogram. If this shows compromised LV systolic function, then will add PATRICIA inhibitor. 7. Hypertension: Well-controlled. 8. Suspect significant pulmonary hypertension. 9. Chronic leg edema. Medications reviewed. Medical regimen and management plan discussed with attending physician. Dobutamine added. Medical decision making is of high complexity. 40 minutes spent on this patient with more than 50% of the time spent in direct patient care. Will follow.
[2019-04-04 16:56] LABS: ANION GAP 13 (5-19); BLOOD UREA NITROGEN 20 mg/dL (7-20); CALCIUM 8.1 mg/dL (8.4-10.2); CARBON DIOXIDE 31 mmol/L (22-30); CHLORIDE 91 mmol/L (98-107); GLUCOSE 80 mg/dL (75-110); POTASSIUM 3.8 mmol/L (3.6-5.0)
[2019-04-04] MEDS ORDERED: MAGNESIUM SULFATE/D5W 1 GM/100 ML RTUPB IV ONE (17:41)
[2019-04-04] MEDS: MAGNESIUM SULFATE/D5W 1 GM/100 ML RTUPB IV SCH ×2 (18:15→20:50)
[2019-04-05] MEDS: HEPARIN SOD (PORCINE) 5,000 UNIT/ML 1 ML VIAL SUBCUT SCH ×3 (05:12→21:33)
[2019-04-05] MEDS: NITROGLYCERIN 2% OINTMENT 1 GM PACKET TP SCH ×4 (05:14→23:40)
[2019-04-05] MEDS: BUMETANIDE INJ/PF 1 MG/4 ML SDV IV SCH ×4 (05:15→23:40)
[2019-04-05 07:00] LABS: ABSOLUTE EOSINOPHILS # (AUTO) 0.2 10^3/uL (0.0-0.6); ABSOLUTE LYMPHOCYTES (AUTO) 1.1 10^3/uL (0.5-4.7); ABSOLUTE MONOCYTES (AUTO) 0.6 10^3/uL (0.1-1.4); ABSOLUTE NEUT (AUTO) 3.3 10^3/uL (1.7-8.2); BASOPHILS % (AUTO) 0.7 % (0-2); HEMATOCRIT 41.5 % (37.9-51.0); HEMOGLOBIN 14.2 g/dL (13.5-17.0); LYMPHOCYTES % (AUTO) 21.3 % (13-45); MEAN CORPUSCULAR HEMOGLOBIN 32.8 pg (27.0-33.4); MEAN CORPUSCULAR HGB CONC 34.3 g/dL (32.0-36.0); MEAN CORPUSCULAR VOLUME 96 fl (80-97); MONOCYTES % (AUTO) 11.7 % (3-13); PLATELET COUNT 140 10^3/uL (150-450); RED BLOOD COUNT 4.33 10^6/uL (4.35-5.55); RED CELL DISTRIBUTION WIDTH 16.1 % (11.5-14.0); SEGMENTED NEUTROPHILS % (AUTO) 62.3 % (42-78); TOTAL CELLS COUNTED % (AUTO) 100 %; WHITE BLOOD COUNT 5.4 10^3/uL (4.0-10.5)
[2019-04-05] MEDS: AZITHROMYCIN 500 MG in DEXTROSE 5%-WATER 250 ML IV SCH (11:04)
[2019-04-05] MEDS: CEFEPIME 1 GM/D5W RTU 1 GM/50 ML RTUPB IV SCH ×2 (11:05→21:34)
--- NOTE | 2019-04-05 14:17 | PDOC PROGRESS REPORT ---
Subjective Progress Note for:: 04/05/19 Subjective:: This is a 58-year-old male who was admitted for acute on chronic respiratory failure secondary to CHF exacerbation, COPD and pneumonia. Patient was started on IV steroids, antibiotics and breathing treatments. He was placed on BiPAP. He was also started on dobutamine drip by cardiology. No acute event overnight. Patient was weaned off BiPAP. Patient is currently saturating well He is currently saturating at 92 to 94% on 4 L via nasal cannula. He says that his shortness of breath has improved today. Denies chest pain. Reason For Visit: ACUTE PULMONARY EDEMA, ACUTE ON CHRONIC DIASTOLIC Physical Exam Vital Signs: Temp Pulse Resp BP Pulse Ox 98.2 F 85 29 H 130/80 H 91 L 04/05/19 12:00 04/05/19 12:00 04/05/19 12:00 04/05/19 12:00 04/05/19 12:00 Intake & Output 04/04/19 04/05/19 04/06/19 06:59 06:59 06:59 Intake Total 480 1020 240 Output Total 5625 2100 425 Balance -5145 -1080 -185 Weight 265 lb 14.04 oz 263 lb 14.293 oz 263 lb 14.293 oz General appearance: PRESENT: no acute distress, well-developed, well-nourished Head exam: PRESENT: atraumatic, normocephalic Eye exam: PRESENT: conjunctiva pink, EOMI, PERRLA. ABSENT: scleral icterus Ear exam: PRESENT: normal external ear exam Mouth exam: PRESENT: moist, tongue midline Neck exam: ABSENT: carotid bruit, JVD, lymphadenopathy, thyromegaly Respiratory exam: PRESENT: rhonchi. ABSENT: rales, wheezes Cardiovascular exam: PRESENT: RRR. ABSENT: diastolic murmur, rubs Pulses: PRESENT: normal dorsalis pedis pul GI/Abdominal exam: PRESENT: normal bowel sounds, soft. ABSENT: distended, guarding, mass, organolmegaly, rebound, tenderness Rectal exam: PRESENT: deferred Extremities exam: PRESENT: +2 edema Neurological exam: PRESENT: alert, awake, oriented to person, oriented to place, oriented to time, oriented to situation, CN II-XII grossly intact. ABSENT: motor sensory deficit Results Laboratory Results: 04/05/19 06:25 04/04/19 16:24 04/04/19 04/05/19 04/05/19 16:24 06:25 06:25 WBC 5.4 RBC 4.33 L Hgb 14.2 Hct 41.5 MCV 96 MCH 32.8 MCHC 34.3 RDW 16.1 H Plt Count 140 L Seg Neutrophils % 62.3 Sodium 134.9 L Potassium 3.8 Chloride 91 L Carbon Dioxide 31 H Anion Gap 13 BUN 20 Creatinine 1.04 Est GFR ( Amer) > 60 Glucose 80 Calcium 8.1 L Magnesium 2.0 04/03/19 03:17 Throat Throat Culture - Final NORMAL KELSEY 04/03/19 20:35 Sputum Gram Stain - Final 04/02/19 04/02/19 04/02/19 20:50 20:50 20:50 Creatine Kinase 31 L CK-MB (CK-2) Troponin I < 0.012 NT-Pro-B Natriuret Pep 4680 H 04/03/19 04/03/19 04/03/19 04:56 04:56 10:09 Creatine Kinase 43 L 31 L CK-MB (CK-2) 0.38 Troponin I < 0.012 NT-Pro-B Natriuret Pep 04/03/19 04/03/19 04/03/19 10:09 14:15 14:25 Creatine Kinase 31 L CK-MB (CK-2) < 0.22 < 0.22 Troponin I < 0.012 0.013 NT-Pro-B Natriuret Pep 04/05/19 06:25 Creatine Kinase CK-MB (CK-2) Troponin I NT-Pro-B Natriuret Pep 307 H Impressions: Acute Abdomen Series 04/02/19 21:29 IMPRESSION: Cardiomegaly. Retrocardiac infiltrate. Nonspecific, nonobstructive bowel gas pattern copyright 2011 [facility] [employer]- All Rights Reserved Chest/Abdomen CTA 04/02/19 23:08 IMPRESSION: Patchy areas of possible pneumonia bilaterally. Cardiomegaly with no aortic dissection or aneurysm. No pulmonary embolus. Assessment and Plan - Diagnosis (1) Acute respiratory failure with hypoxia Is this a current diagnosis for this admission?: Yes Plan: Multifactorial from CHF and COPD exacerbation and concomitant pneumonia. Weaned off BiPAP. Currently on 4 L via nasal cannula. (2) CHF (congestive heart failure) Qualifiers: Heart failure type: unspecified Heart failure chronicity: acute on chronic Qualified Code(s): I50.9 - Heart failure, unspecified Is this a current diagnosis for this admission?: Yes Plan: Acute on chronic diastolic heart failure. Preserved LV function in 2016. Suspect right-sided heart failure as well from his longstanding severe COPD. Currently on dobutamine by cardiology. Cardiology plans to pursue echocardiogram. (3) COPD (chronic obstructive pulmonary disease) Qualifiers: COPD type: COPD with acute exacerbation Qualified Code(s): J44.1 - Chronic obstructive pulmonary disease with (acute) exacerbation Is this a current diagnosis for this admission?: Yes Plan: Continue IV steroids and breathing treatments. (4) Pneumonia Is this a current diagnosis for this admission?: Yes Plan: Continue antibiotics. - Plan Summary Summary: Patient will be admitted to the medical floor on telemetry and will receive the customary supportive and symptomatic treatments. He will be seen in [facility] by Dr. Diaz for further evaluation and treatment of his congestive heart failure. He will be treated initially with a IV Bumex 1 mg every 6 hours. He will also be treated with Nitrol 2% ointment 1 g applied every 6 hours. He will receive morphine sulfate 2 mg IV every hour as needed severe dyspnea. Serial cardiac enzymes will be obtained. CBCs and metabolic profiles with magnesium levels will be obtained as needed. 04/04/2019 Temperature 99.3. As of 80 blood pressure on 5 and half liters WBCs 5.1 cultures so far are negative Dr. Diaz has seen the patient but unfortunately the consult note is absent, what looks to be a computer error. I will discuss this with him. Patient currently on cefepime and Zithromax Patient also on IV Bumex Patient did have a CT angiogram on admission for an elevated d-dimer which showed possible pneumonia bilaterally, lower lobes as well as the left upper lobe however no pulmonary embolism Patient is being seen by discharge planning because he lives alone at home. Continue IV antibiotics continue Bumex. We will recheck labs in the morning. - Time Time Spent with patient: 25-34 minutes
--- NOTE | 2019-04-05 15:26 | Progress Note ---
Provider Note Provider Note: CARDIOLOGY CONSULTATION by Dr. Susan Diaz on 04/05/2019. OBJECTIVE: The patient is doing marginally better. He is got a good urine output with dobutamine. There is occasional PVCs but no major ventricular arrhythmias seen. The patient still seems to be short of breath but lately slightly less so. The patient denies any chest pain. His leg edema is slightly improved. There is no TIA CVA symptoms. PHYSICAL EXAMINATION: The patient is morbidly obese. In no mild respiratory distress. Selected Entries 04/05/19 12:00 Temperature 98.2 F Temperature Oral Source Pulse Rate 85 Respiratory 29 H Rate Blood Pressure 130/80 H [Left Upper Arm ] Blood Pressure 96 Mean [Left Upper Arm] Blood Pressure Sitting Position [Left Upper Arm] O2 Sat by Pulse 91 L Oximetry Oxygen Delivery Nasal Cannula Method ( includes room air) Oxygen Flow 4 HEAD: Is atraumatic normocephalic. EYES: Pupils are equal round regular reactive light accommodation. ENT is negative. NECK: Supple. There is mild JVD present. Carotids are equal there is no bruit. There is no lymphadenopathy. There is no goiter. There is no accessory muscle respiration use. Trachea central. LUNGS: There is diminished air entry prolonged expiration. There is scattered wheezing and rhonchi. There is bibasilar rales of CHF. HEART: S1-S2 is heard. There is no S3 gallop. There is no S4 gallop. There is systolic murmur left sternal border and the apex there is no rub. A BDOMEN: Is obese. Nontender. There is no paraspinal megaly. Bowel sounds are well heard. EXTREMITIES: Femorals are difficult to palpate. There is no femoral bruits. Unable to palpate leg pulses. There is 2+ bilateral leg edema with chronic venous stasis dermatitis changes. 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 PSYCHIATRIC: Unable to make a psychiatric exam due to the lack of communication with the patient due to his severe hearing loss. He does not appear to be agitated or anxious IMPRESSION/RECOMMENDATION: 1. Acute on chronic respiratory failure. This is multifactorial secondary to congestive heart failure, acute exacerbation of COPD and pneumonia. 2. Acute on chronic systolic heart failure: Will increase the dobutamine to 5 mcg/kg/min. Continue his current medication. 3. Acute exacerbation of COPD: Continue bronchodilators and antibiotics and respiratory treatments and steroids. 4. Pneumonia: Continue antibiotics. 5. Coronary artery disease: History of remote myocardial infarction history of stent: Patient without any anginal symptoms. No evidence of acute coronary syndrome 6. Cardiomyopathy: His last echo done in 2015 showed his LV ejection fraction was done normal limits. But not he has not had an echo recently. Will later get an echocardiogram. If this shows compromised LV systolic function, then will add PATRICIA inhibitor. 7. Hypertension: Well-controlled. 8. Suspect significant pulmonary hypertension. 9. Chronic leg edema.Rate Medications reviewed. Medications adjusted. Medical regimen and management plan discussed with attending physician. Will order SMA-7 and chest x-ray in the a.m. Medical decision making is of high complexity. Will follow.
[2019-04-05] MEDS: POTASSIUM CHLORIDE 10 MEQ TABLET.ER PO SCH ×3 (16:56→18:29)
[2019-04-05] MEDS: DOCUSATE SODIUM 100 MG CAPSULE PO SCH (16:56)
[2019-04-05] MEDS: FAMOTIDINE 20 MG TABLET PO SCH ×2 (16:57→21:32)
[2019-04-05] MEDS: CLOPIDOGREL BISULFATE 75 MG TABLET PO SCH (16:58)
[2019-04-05] MEDS: DOBUTAMINE HCL/D5W 500 MG/250 ML RTUINJ IV PRN (18:30)
--- NOTE | 2019-04-06 00:57 | RADIOLOGY REPORT (SQ) ---
EXAM DESCRIPTION: X-RAY CHEST- One View CLINICAL HISTORY: Congestive heart failure COMPARISON: November 21, 2012 TECHNIQUE: Single view of the chest. FINDINGS: There are overlying EKG leads. There are no discrete pneumothoraces or pleural effusions. Patchy opacities bilaterally are better detailed on recent CT chest April 03, 2019 The pulmonary vascularity is stable in appearance. The cardiomediastinal silhouette is enlarged. No suspicious lytic or blastic osseous lesions are identified. IMPRESSION: 1. Patchy bilateral opacities are better detailed on prior CT chest April 03, 2019. 2. Persistent enlargement of the cardiac silhouette.
[2019-04-06] MEDS: BUMETANIDE INJ/PF 1 MG/4 ML SDV IV SCH (05:31)
[2019-04-06] MEDS: NITROGLYCERIN 2% OINTMENT 1 GM PACKET TP SCH ×3 (05:32→17:20)
[2019-04-06] MEDS: HEPARIN SOD (PORCINE) 5,000 UNIT/ML 1 ML VIAL SUBCUT SCH ×3 (05:33→22:19)
[2019-04-06 05:44] LABS: ALBUMIN 3.6 g/dL (3.5-5.0); ALKALINE PHOSPHATASE 72 U/L (38-126); ANION GAP 13 (5-19); ASPARTATE AMINO TRANSFERASE 16 U/L (17-59); BILIRUBIN,DIRECT 0.4 mg/dL (0.0-0.4); BLOOD UREA NITROGEN 30 mg/dL (7-20); CALCIUM 8.7 mg/dL (8.4-10.2); CARBON DIOXIDE 32 mmol/L (22-30); CHLORIDE 91 mmol/L (98-107); GLUCOSE 130 mg/dL (75-110); TOTAL PROTEIN 6.8 g/dL (6.3-8.2)
[2019-04-06 05:47] LABS: POTASSIUM 3.8 mmol/L (3.6-5.0)
[2019-04-06] MEDS: DOCUSATE SODIUM 100 MG CAPSULE PO SCH (09:12)
[2019-04-06] MEDS: CEFEPIME 1 GM/D5W RTU 1 GM/50 ML RTUPB IV SCH ×2 (09:12→23:06)
[2019-04-06] MEDS: POTASSIUM CHLORIDE 10 MEQ TABLET.ER PO SCH ×3 (09:12→17:20)
[2019-04-06] MEDS: AZITHROMYCIN 500 MG in DEXTROSE 5%-WATER 250 ML IV SCH (09:13)
[2019-04-06] MEDS: CLOPIDOGREL BISULFATE 75 MG TABLET PO SCH (09:13)
[2019-04-06] MEDS: FAMOTIDINE 20 MG TABLET PO SCH ×2 (09:13→22:19)
[2019-04-06] MEDS ORDERED: BUMETANIDE INJ/PF 1 MG/4 ML SDV IV SCH (10:00)
--- NOTE | 2019-04-06 13:10 | PDOC PROGRESS REPORT ---
Subjective Progress Note for:: 04/06/19 Subjective:: This is a 58-year-old male who was admitted for acute on chronic respiratory failure secondary to CHF exacerbation, COPD and pneumonia. Patient was started on IV steroids, antibiotics and breathing treatments. He was placed on BiPAP. He was also started on dobutamine drip by cardiology. No acute event overnight. Patient was weaned off BiPAP. Patient is currently saturating well 04/05: He is currently saturating at 92 to 94% on 4 L via nasal cannula. He say s that his shortness of breath has improved today. Denies chest pain. 04/06: Patient desaturated to high 80s yesterday afternoon and was placed back on BiPAP. Currently saturating well on BiPAP. Dobutamine drip was increased yesterday per cardiology. He continues to report slow but gradual improvement in his shortness of breath but is not at his baseline yet. Denies chest pain. Reason For Visit: ACUTE PULMONARY EDEMA, ACUTE ON CHRONIC DIASTOLIC Physical Exam Vital Signs: Temp Pulse Resp BP Pulse Ox 98.2 F 83 21 H 124/70 90 L 04/06/19 08:07 04/06/19 09:53 04/06/19 08:07 04/06/19 09:53 04/06/19 08:07 Intake & Output 04/05/19 04/06/19 04/07/19 06:59 06:59 06:59 Intake Total 1020 460 800 Output Total 2100 1250 250 Balance -1080 -790 550 Weight 263 lb 14.293 oz 261 lb 7.492 oz General appearance: PRESENT: no acute distress, well-developed, well-nourished Head exam: PRESENT: atraumatic, normocephalic Eye exam: PRESENT: conjunctiva pink, EOMI, PERRLA. ABSENT: scleral icterus Ear exam: PRESENT: normal external ear exam Mouth exam: PRESENT: moist, tongue midline Neck exam: ABSENT: carotid bruit, JVD, lymphadenopathy, thyromegaly Respiratory exam: PRESENT: rhonchi. ABSENT: rales, wheezes Cardiovascular exam: PRESENT: RRR. ABSENT: diastolic murmur, rubs, systolic murmur Pulses: PRESENT: normal dorsalis pedis pul GI/Abdominal exam: PRESENT: normal bowel sounds, soft. ABSENT: distended, guarding, mass, organolmegaly, rebound, tenderness Rectal exam: PRESENT: deferred Extremities exam: PRESENT: +2 edema Neurological exam: PRESENT: alert, awake, oriented to person, oriented to place, oriented to time Results Laboratory Results: 04/05/19 06:25 04/06/19 04:34 04/06/19 04:34 Sodium 136.1 L Potassium 3.8 Chloride 91 L Carbon Dioxide 32 H Anion Gap 13 BUN 30 H Creatinine 1.35 H Est GFR ( Amer) > 60 Glucose 130 H Calcium 8.7 Total Bilirubin 1.0 AST 16 L Alkaline Phosphatase 72 Total Protein 6.8 Albumin 3.6 04/03/19 20:35 Sputum Gram Stain - Final 04/03/19 20:35 Sputum Sputum Culture - Final Escherichia Coli Pseudomonas Aeruginosa Reduced Normal Lisa 04/03/19 03:17 Throat Throat Culture - Final NORMAL LISA 04/02/19 04/02/19 04/02/19 20:50 20:50 20:50 Creatine Kinase 31 L CK-MB (CK-2) Troponin I < 0.012 NT-Pro-B Natriuret Pep 4680 H 04/03/19 04/03/19 04/03/19 04:56 04:56 10:09 Creatine Kinase 43 L 31 L CK-MB (CK-2) 0.38 Troponin I < 0.012 NT-Pro-B Natriuret Pep 04/03/19 04/03/19 04/03/19 10:09 14:15 14:25 Creatine Kinase 31 L CK-MB (CK-2) < 0.22 < 0.22 Troponin I < 0.012 0.013 NT-Pro-B Natriuret Pep 04/05/19 06:25 Creatine Kinase CK-MB (CK-2) Troponin I NT-Pro-B Natriuret Pep 307 H Impressions: Acute Abdomen Series 04/02/19 21:29 IMPRESSION: Cardiomegaly. Retrocardiac infiltrate. Nonspecific, nonobstructive bowel gas pattern copyright 2011 [facility]- All Rights Reserved Chest/Abdomen CTA 04/02/19 23:08 IMPRESSION: Patchy areas of possible pneumonia bilaterally. Cardiomegaly with no aortic dissection or aneurysm. No pulmonary embolus. Chest X-Ray 04/06/19 00:00 IMPRESSION: 1. Patchy bilateral opacities are better detailed on prior CT chest April 03, 2019. 2. Persistent enlargement of the cardiac silhouette. Assessment and Plan - Diagnosis (1) Acute respiratory failure with hypoxia Is this a current diagnosis for this admission?: Yes Plan: Multifactorial from CHF and COPD exacerbation and concomitant pneumonia. 03/26: Weaned off BiPAP. Currently on 4 L via nasal cannula. 04/06: Patient desaturated to high 80s yesterday afternoon and was placed back on BiPAP. Currently saturating well on BiPAP. (2) CHF (congestive heart failure) Qualifiers: Heart failure type: unspecified Heart failure chronicity: acute on chronic Qualified Code(s): I50.9 - Heart failure, unspecified Is this a current diagnosis for this admission?: Yes Plan: Acute on chronic diastolic heart failure. Preserved LV function in 2016. Suspect right-sided heart failure as well from his longstanding severe COPD. Currently on dobutamine by cardiology. Cardiology plans to pursue echocardiogram later. 04/06: Dobutamine drip was increased yesterday per cardiology. Decrease Bumex as creatinine is trending up. (3) COPD (chronic obstructive pulmonary disease) Qualifiers: COPD type: COPD with acute exacerbation Qualified Code(s): J44.1 - Chronic obstructive pulmonary disease with (acute) exacerbation Is this a current diagnosis for this admission?: Yes Plan: Continue IV steroids and breathing treatments. (4) Pneumonia Is this a current diagnosis for this admission?: Yes Plan: Continue antibiotics. (5) Acute kidney injury Is this a current diagnosis for this admission?: Yes Plan: Likely related to IV diuresis. Currently on Bumex 1 mg IV every 6. Decrease Bumex to every 12. - Plan Summary Summary: Patient will be admitted to the medical floor on telemetry and will receive the customary supportive and symptomatic treatments. He will be seen in consultation by Dr. Diaz for further evaluation and treatment of his congestive heart failure. He will be treated initially with a IV Bumex 1 mg every 6 hours. He will also be treated with Nitrol 2% ointment 1 g applied every 6 hours. He will receive morphine sulfate 2 mg IV every hour as needed severe dyspnea. Serial cardiac enzymes will be obtained. CBCs and metabolic profiles with magnesium levels will be obtained as needed. 04/04/2019 Temperature 99.3. As of 80 blood pressure on 5 and half liters WBCs 5.1 cultures so far are negative Dr. Diaz has seen the patient but unfortunately the consult note is absent, what looks to be a computer error. I will discuss this with him. Patient currently on cefepime and Zithromax Patient also on IV Bumex Patient did have a CT angiogram on admission for an elevated d-dimer which showed possible pneumonia bilaterally, lower lobes as well as the left upper lobe however no pulmonary embolism Patient is being seen by discharge planning because he lives alone at home. Continue IV antibiotics continue Bumex. We will recheck labs in the morning.
--- NOTE | 2019-04-06 18:32 | Progress Note ---
Provider Note Provider Note: CARDIOLOGY PROGRESS NOTE by on 04/06/2019. SUBJECTIVE: The patient is wide awake today. He he appears to be very much less short of breath. He still has orthopnea. The patient today is very appropriate, in spite of this hearing problem. He states he has no chest pain or discomfort. There is no arrhythmia seen on the monitor. He does have orthopnea. His leg edema is slightly better. He is putting out urine, but his renal function has worsened. Hence his Bumex has been decreased. He is tolerating dobutamine at 5 mcg/kg/min without any major weight ventricular ectopic activity. There is no TIA CVA symptoms. PHYSICAL EXAMINATION: The patient is morbidly obese. At present in no acute distress. Selected Entries 04/06/19 16:27 Temperature 97.9 F Temperature Oral Source Pulse Rate 64 Respiratory 20 Rate Blood Pressure 147/79 H Blood Pressure 101 Mean BP Location Left Arm BP Position Supine O2 Sat by Pulse 92 Oximetry Oxygen Flow 5.00 Rate HEAD: Is atraumatic normocephalic. EYES: Pupils are equal round regular reactive light accommodation. ENT is negative. NECK: Supple. There is mild JVD present. Carotids are equal there is no bruit. There is no lymphadenopathy. There is no goiter. There is no accessory muscle respiration use. Trachea central. LUNGS: There is diminished air entry prolonged expiration. There is scattered rhonchi. Bibasilar dry crackles of pneumonia. There is no rales of CHF. HEART: S1-S2 is heard. There is no S3 gallop. There is no S4 gallop. There is systolic murmur left sternal border and the apex there is no rub. ABDOMEN: Is obese. Nontender. There is no paraspinal megaly. Bowel sounds are well heard. EXTREMITIES: Femorals are difficult to palpate. There is no femoral bruits. Unable to palpate leg pulses. There is 1+ bilateral leg edema with chronic venous stasis dermatitis changes. 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 PSYCHIATRIC: Unable to make a psychiatric exam due to the lack of communication with the patient due to his severe hearing loss. He does not appear to be agitated or anxious. Labs- All tests 24 hr 04/06/19 04:34 Sodium 136.1 L Potassium 3.8 Chloride 91 L Carbon Dioxide 32 H Anion Gap 13 BUN 30 H Creatinine 1.35 H Est GFR ( Amer) > 60 Est GFR (MDRD) Non-Af 54 L Glucose 130 H Calcium 8.7 Total Bilirubin 1.0 Direct Bilirubin 0.4 Neonat Total Bilirubin Not Reportable Neonat Direct Bilirubin Not Reportable Neonat Indirect Bili Not Reportable AST 16 L ALT 9 Alkaline Phosphatase 72 Total Protein 6.8 Albumin 3.6 Acute Abdomen Series 04/02/19 21:29 IMPRESSION: Cardiomegaly. Retrocardiac infiltrate. Nonspecific, nonobstructive bowel gas pattern copyright 2010 [employer]- All Rights Reserved Chest/Abdomen CTA 04/02/19 23:08 IMPRESSION: Patchy areas of possible pneumonia bilaterally. Cardiomegaly with no aortic dissection or aneurysm. No pulmonary embolus. Chest X-Ray 04/06/19 00:00 IMPRESSION: 1. Patchy bilateral opacities are better detailed on prior CT chest April 03, 2019. 2. Persistent enlargement of the cardiac silhouette. The patient's 24-hour intake is 460 mL. 24-hour output is 1250 mL. IMPRESSION/RECOMMENDATION: 1. Acute on chronic respiratory failure. This is multifactorial secondary to congestive heart failure, acute exacerbation of COPD and pneumonia. 2. Acute on chronic systolic heart failure: Will continue the dobutamine to 5 mcg/kg/min. Continue his current medication. 3. Acute exacerbation of COPD: Continue bronchodilators and antibiotics and respiratory treatments and steroids. 4. Pneumonia: Continue antibiotics. There is improvement in the chest x-ray. 5. Coronary artery disease: History of remote myocardial infarction history of stent: Patient without any anginal symptoms. No evidence of acute coronary syndrome 6. Cardiomyopathy: His last echo done in 2016 showed his LV ejection fraction was done normal limits. But not he has not had an echo recently. Will later get an echocardiogram. If this shows compromised LV systolic function, then will add PATRICIA inhibitor. 7. Hypertension: Well-controlled. 8. Suspect significant pulmonary hypertension. 9. Chronic leg edema.Rate 10. Worsening renal function. We will hold the patient's Bumex for now. Medications reviewed. Medications adjusted. Medical regimen and management plan discussed with attending physician on the case. Medical decision making is of moderate complexity. 40 minutes spent on this patient more than 50% time spent in direct patient care. Will follow.
[2019-04-06] MEDS ORDERED: IPRATROPIUM/ALBUTEROL 0.5-2.5 MG/3 ML AMPUL NEB PRN (20:59)
[2019-04-06] MEDS ORDERED: IPRATROPIUM/ALBUTEROL 0.5-2.5 MG/3 ML AMPUL NEB SCH (22:00)
[2019-04-06] MEDS: DOBUTAMINE HCL/D5W 500 MG/250 ML RTUINJ IV PRN (23:16)
[2019-04-07] MEDS: IPRATROPIUM/ALBUTEROL 0.5-2.5 MG/3 ML AMPUL NEB SCH ×3 (00:21→16:59)
[2019-04-07] MEDS: NITROGLYCERIN 2% OINTMENT 1 GM PACKET TP SCH ×4 (00:49→18:06)
[2019-04-07 05:49] LABS: ALBUMIN 3.8 g/dL (3.5-5.0); ALKALINE PHOSPHATASE 71 U/L (38-126); ANION GAP 13 (5-19); ASPARTATE AMINO TRANSFERASE 19 U/L (17-59); BILIRUBIN,DIRECT 0.3 mg/dL (0.0-0.4); BILIRUBIN,TOTAL 0.9 mg/dL (0.2-1.3); BLOOD UREA NITROGEN 30 mg/dL (7-20); CARBON DIOXIDE 31 mmol/L (22-30); CHLORIDE 93 mmol/L (98-107); GLUCOSE 133 mg/dL (75-110); POTASSIUM 4.2 mmol/L (3.6-5.0); TOTAL PROTEIN 7.1 g/dL (6.3-8.2)
[2019-04-07] MEDS: HEPARIN SOD (PORCINE) 5,000 UNIT/ML 1 ML VIAL SUBCUT SCH ×3 (05:53→22:23)
[2019-04-07] MEDS: CLOPIDOGREL BISULFATE 75 MG TABLET PO SCH (10:03)
[2019-04-07] MEDS: DOCUSATE SODIUM 100 MG CAPSULE PO SCH (10:03)
[2019-04-07] MEDS: CEFEPIME 1 GM/D5W RTU 1 GM/50 ML RTUPB IV SCH ×2 (10:03→22:31)
[2019-04-07] MEDS: POTASSIUM CHLORIDE 10 MEQ TABLET.ER PO SCH ×3 (10:03→18:06)
[2019-04-07] MEDS: AZITHROMYCIN 500 MG in DEXTROSE 5%-WATER 250 ML IV SCH (10:03)
[2019-04-07] MEDS: FAMOTIDINE 20 MG TABLET PO SCH ×2 (10:03→22:19)
--- NOTE | 2019-04-07 12:04 | PDOC PROGRESS REPORT ---
Subjective Progress Note for:: 04/07/19 Subjective:: This is a 58-year-old male who was admitted for acute on chronic respiratory failure secondary to CHF exacerbation, COPD and pneumonia. Patient was started on IV steroids, antibiotics and breathing treatments. He was placed on BiPAP. He was also started on dobutamine drip by cardiology. No acute event overnight. Patient was weaned off BiPAP. Patient is currently saturating well 04/05: He is currently saturating at 92 to 94% on 4 L via nasal cannula. He say s that his shortness of breath has improved today. Denies chest pain. 04/06: Patient desaturated to high 80s yesterday afternoon and was placed back on BiPAP. Currently saturating well on BiPAP. Dobutamine drip was increased yesterday per cardiology. He continues to report slow but gradual improvement in his shortness of breath but is not at his baseline yet. Denies chest pain. 04/07: No acute event overnight. Patient was weaned off BiPAP. Currently saturating well on nasal cannula. Still on dobutamine drip per cardiology. He continues to feel better and says that his shortness of breath is significantly improved. Denies chest pain. Reason For Visit: ACUTE PULMONARY EDEMA, ACUTE ON CHRONIC DIASTOLIC Physical Exam Vital Signs: Temp Pulse Resp BP Pulse Ox 97.8 F 77 16 140/71 H 88 L 04/07/19 07:38 04/07/19 11:00 04/07/19 07:45 04/07/19 11:00 04/07/19 07:45 Intake & Output 04/06/19 04/07/19 04/08/19 06:59 06:59 06:59 Intake Total 460 2324 300 Output Total 1250 1750 Balance -790 574 300 Weight 261 lb 7.492 oz 257 lb 15.053 oz General appearance: PRESENT: no acute distress, well-developed, well-nourished Head exam: PRESENT: atraumatic, normocephalic Eye exam: PRESENT: conjunctiva pink, EOMI, PERRLA. ABSENT: scleral icterus Ear exam: PRESENT: normal external ear exam Mouth exam: PRESENT: moist, tongue midline Neck exam: ABSENT: carotid bruit, JVD, lymphadenopathy, thyromegaly Respiratory exam: PRESENT: rhonchi. ABSENT: rales, wheezes Cardiovascular exam: PRESENT: RRR. ABSENT: diastolic murmur, rubs Pulses: PRESENT: normal dorsalis pedis pul GI/Abdominal exam: PRESENT: normal bowel sounds, soft. ABSENT: distended, guarding, mass, organolmegaly, rebound, tenderness Rectal exam: PRESENT: deferred Extremities exam: PRESENT: +2 edema Neurological exam: PRESENT: alert, awake, oriented to person, oriented to place, CN II-XII grossly intact. ABSENT: motor sensory deficit Results Laboratory Results: 04/05/19 06:25 04/07/19 04:21 04/07/19 04:21 Sodium 136.7 L Potassium 4.2 Chloride 93 L Carbon Dioxide 31 H Anion Gap 13 BUN 30 H Creatinine 1.21 Est GFR ( Amer) > 60 Glucose 133 H Calcium 9.0 Total Bilirubin 0.9 AST 19 Alkaline Phosphatase 71 Total Protein 7.1 Albumin 3.8 04/03/19 20:35 Sputum Gram Stain - Final 04/03/19 20:35 Sputum Sputum Culture - Final Escherichia Coli Pseudomonas Aeruginosa Reduced Normal Lisa 04/02/19 04/02/19 04/02/19 20:50 20:50 20:50 Creatine Kinase 31 L CK-MB (CK-2) Troponin I < 0.012 NT-Pro-B Natriuret Pep 4680 H 04/03/19 04/03/19 04/03/19 04:56 04:56 10:09 Creatine Kinase 43 L 31 L CK-MB (CK-2) 0.38 Troponin I < 0.012 NT-Pro-B Natriuret Pep 04/03/19 04/03/19 04/03/19 10:09 14:15 14:25 Creatine Kinase 31 L CK-MB (CK-2) < 0.22 < 0.22 Troponin I < 0.012 0.013 NT-Pro-B Natriuret Pep 04/05/19 06:25 Creatine Kinase CK-MB (CK-2) Troponin I NT-Pro-B Natriuret Pep 307 H Impressions: Acute Abdomen Series 04/02/19 21:29 IMPRESSION: Cardiomegaly. Retrocardiac infiltrate. Nonspecific, nonobstructive bowel gas pattern copyright 2010 [employer]- All Rights Reserved Chest/Abdomen CTA 04/02/19 23:08 IMPRESSION: Patchy areas of possible pneumonia bilaterally. Cardiomegaly with no aortic dissection or aneurysm. No pulmonary embolus. Chest X-Ray 04/06/19 00:00 IMPRESSION: 1. Patchy bilateral opacities are better detailed on prior CT chest April 03, 2019. 2. Persistent enlargement of the cardiac silhouette. Assessment and Plan - Diagnosis (1) Acute respiratory failure with hypoxia Is this a current diagnosis for this admission?: Yes Plan: Multifactorial from CHF and COPD exacerbation and concomitant pneumonia. 03/26: Weaned off BiPAP. Currently on 4 L via nasal cannula. 04/06: Patient desaturated to high 80s yesterday afternoon and was placed back on BiPAP. Currently saturating well on BiPAP. 04/07: Weaned off BiPAP. Currently saturating well on nasal cannula. (2) CHF (congestive heart failure) Qualifiers: Heart failure type: unspecified Heart failure chronicity: acute on chronic Qualified Code(s): I50.9 - Heart failure, unspecified Is this a current diagnosis for this admission?: Yes Plan: Acute on chronic diastolic heart failure. Preserved LV function in 2016. Suspect right-sided heart failure as well from his longstanding severe COPD. Currently on dobutamine by cardiology. Cardiology plans to pursue echocardiogram later. 04/06: Dobutamine drip was increased yesterday per cardiology. Decrease Bumex as creatinine is trending up. 04/07: IV Bumex DCed per cardio. (3) COPD (chronic obstructive pulmonary disease) Qualifiers: COPD type: COPD with acute exacerbation Qualified Code(s): J44.1 - Chronic obstructive pulmonary disease with (acute) exacerbation Is this a current diagnosis for this admission?: Yes Plan: Continue IV steroids and breathing treatments. 04/07: Switched to prednisone. (4) Pneumonia Is this a current diagnosis for this admission?: Yes Plan: Continue antibiotics. (5) Acute kidney injury Is this a current diagnosis for this admission?: Yes Plan: Likely related to IV diuresis. Currently on Bumex 1 mg IV every 6. Decrease Bumex to every 12. 04/07: Creatinine improved today. Bumex DCed. - Plan Summary Summary: Patient will be admitted to the medical floor on telemetry and will receive the customary supportive and symptomatic treatments. He will be seen in consultation by Dr. Diaz for further evaluation and treatment of his congestive heart failure. He will be treated initially with a IV Bumex 1 mg every 6 hours. He will also be treated with Nitrol 2% ointment 1 g applied every 6 hours. He will receive morphine sulfate 2 mg IV every hour as needed severe dyspnea. Serial cardiac enzymes will be obtained. CBCs and metabolic profiles with magnesium levels will be obtained as needed. 04/04/2019 Temperature 99.3. As of 80 blood pressure on 5 and half liters WBCs 5.1 cultures so far are negative Dr. Diaz has seen the patient but unfortunately the consult note is absent, what looks to be a computer error. I will discuss this with him. Patient currently on cefepime and Zithromax Patient also on IV Bumex Patient did have a CT angiogram on admission for an elevated d-dimer which showed possible pneumonia bilaterally, lower lobes as well as the left upper lobe however no pulmonary embolism Patient is being seen by discharge planning because he lives alone at home. Continue IV antibiotics continue Bumex. We will recheck labs in the morning. - Time Time Spent with patient: 25-34 minutes
[2019-04-07] MEDS: DOBUTAMINE HCL/D5W 500 MG/250 ML RTUINJ IV PRN (12:13)
[2019-04-07] MEDS: PREDNISONE 10 MG TABLET PO SCH (18:06)
--- NOTE | 2019-04-07 19:13 | Progress Note ---
Provider Note Provider Note: CARDIOLOGY PROGRESS NOTE by Dr. Susan Diaz on 04/07/2019. Subjective: The patient is doing much better. He is more awake alert. He has no anginal symptoms. He denies shortness of breath at rest. He still has orthopnea. There is no arrhythmia seen on the monitor. There is no TIA CVA symptoms. His leg edema is slightly improved. He says he has cough but is not bringing up any sputum. He has no fever. His renal function is come back to normal after holding the patient's Bumex. We will restart p.o. Bumex. PHYSICAL EXAMINATION: The patient is morbidly obese. At present in no acute distress. Selected Entries 04/07/19 04/07/19 15:23 16:00 Temperature 98.3 F Temperature Oral Source Pulse Rate 74 Respiratory 20 Rate Blood Pressure 140/57 H BP Position Supine O2 Sat by Pulse 95 Oximetry Oxygen Flow 6.00 Rate Oxygen Delivery Nasal Cannula Method HEAD: Is atraumatic normocephalic. EYES: Pupils are equal round regular reactive light accommodation. ENT is negative. NECK: Supple. There is no JVD present. Carotids are equal there is no bruit. There is no lymphadenopathy. There is no goiter. There is no accessory muscle respiration use. Trachea central. LUNGS: There is diminished air entry prolonged expiration. There is scattered rhonchi. Bibasilar dry crackles of pneumonia. There is no rales of CHF. HEART: S1-S2 is heard. There is no S3 gallop. There is no S4 gallop. There is systolic murmur left sternal border and the apex there is no rub. ABDOMEN: Is obese. Nontender. There is no paraspinal megaly. Bowel sounds are well heard. EXTREMITIES: Femorals are difficult to palpate. There is no femoral bruits. Unable to palpate leg pulses. There is 1+ bilateral leg edema with chronic venous stasis dermatitis changes. EDUCATION DIRECTOR: The patient is conscious, awake alert and moves all 4 extremities. PSYCHIATRIC: Unable to make a psychiatric exam due to the lack of communication with the pa. There is no focal deficits. PSYCHIATRIC: Patient judgment insight are intact although is of slightly slow mentation. He does not appear to be agitated or confused. He is not anxious. The patient's 24-hour intake is 2002 and 54 mL. 24-hour output is 1750 mL. Labs- All tests 24 hr 04/07/19 04:21 Sodium 136.7 L Potassium 4.2 Chloride 93 L Carbon Dioxide 31 H Anion Gap 13 BUN 30 H Creatinine 1.21 Est GFR ( Amer) > 60 Est GFR (MDRD) Non-Af > 60 Glucose 133 H Calcium 9.0 Total Bilirubin 0.9 Direct Bilirubin 0.3 Neonat Total Bilirubin Not Reportable Neonat Direct Bilirubin Not Reportable Neonat Indirect Bili Not Reportable AST 19 ALT 10 Alkaline Phosphatase 71 Total Protein 7.1 Albumin 3.8 IMPRESSION/RECOMMENDATION: 1. Acute on chronic respiratory failure. This is multifactorial secondary to congestive heart failure, acute exacerbation of COPD and pneumonia. 2. Acute on chronic systolic heart failure: Will decrease the dobutamine drip to 2.5 mcg/kg/min. Continue his current medication. Will get an echocardiogram for accurate LV ejection fraction. 3. Acute exacerbation of COPD: Continue bronchodilators and antibiotics and respiratory treatments and steroids. 4. Pneumonia: Continue antibiotics. There is improvement in the chest x-ray. 5. Coronary artery disease: History of remote myocardial infarction history of stent: Patient without any anginal symptoms. No evidence of acute coronary syndrome 6. Cardiomyopathy: His last echo done in 2016 showed his LV ejection fraction was done normal limits. But not he has not had an echo recently. Will later get an echocardiogram. If this shows compromised LV systolic function, then will add PATRICIA inhibitor. 7. Hypertension: Well-controlled. 8. Suspect significant pulmonary hypertension. 9. Chronic leg edema.Rate 10. Worsening renal function. This is improved with holding the patient's IV Lasix. Will restart the patient's diuretics orally. Medications reviewed. Medications adjusted. Medical decision making is of high complexity in view of the need to change his dobutamine and also the need to add oral diuretics. Also check echocardiogram ordered. Medical decision making hence is of high complexity. 40 minutes spent as patient more than 50% of time spent in direct patient care. Medication regimen and medical regimen discussed with attending provider on the case. Will follow.
[2019-04-07] MEDS: LISINOPRIL 5 MG TABLET PO SCH (22:19)
[2019-04-07] MEDS: METOPROLOL SUCCINATE 25 MG TAB.SR.24H PO SCH (22:19)
[2019-04-08] MEDS: IPRATROPIUM/ALBUTEROL 0.5-2.5 MG/3 ML AMPUL NEB SCH ×3 (00:44→15:46)
[2019-04-08] MEDS: HEPARIN SOD (PORCINE) 5,000 UNIT/ML 1 ML VIAL SUBCUT SCH ×3 (05:22→21:24)
[2019-04-08] MEDS: DOCUSATE SODIUM 100 MG CAPSULE PO SCH (10:20)
[2019-04-08] MEDS: BUMETANIDE 1 MG TABLET PO SCH ×2 (10:20→17:19)
[2019-04-08] MEDS: METOPROLOL SUCCINATE 25 MG TAB.SR.24H PO SCH ×2 (10:20→21:21)
[2019-04-08] MEDS: PREDNISONE 10 MG TABLET PO SCH ×2 (10:20→17:19)
[2019-04-08] MEDS: ISOSORBIDE MONONITRATE 30 MG TAB.ER.24H PO SCH (10:20)
[2019-04-08] MEDS: CEFEPIME 1 GM/D5W RTU 1 GM/50 ML RTUPB IV SCH (10:20)
[2019-04-08] MEDS: AZITHROMYCIN 500 MG in DEXTROSE 5%-WATER 250 ML IV SCH (10:20)
[2019-04-08] MEDS: CLOPIDOGREL BISULFATE 75 MG TABLET PO SCH (10:20)
[2019-04-08] MEDS: FAMOTIDINE 20 MG TABLET PO SCH ×2 (10:20→21:21)
[2019-04-08] MEDS: LISINOPRIL 5 MG TABLET PO SCH ×2 (10:20→21:21)
[2019-04-08] MEDS: POTASSIUM CHLORIDE 10 MEQ TABLET.ER PO SCH ×3 (10:21→17:19)
[2019-04-08 13:25] LABS: ABSOLUTE EOSINOPHILS # (AUTO) 0.3 10^3/uL (0.0-0.6); ABSOLUTE LYMPHOCYTES (AUTO) 0.7 10^3/uL (0.5-4.7); ABSOLUTE MONOCYTES (AUTO) 0.4 10^3/uL (0.1-1.4); ABSOLUTE NEUT (AUTO) 3.5 10^3/uL (1.7-8.2); BASOPHILS % (AUTO) 0.7 % (0-2); EOSINOPHILS % (AUTO) 5.5 % (0-6); HEMOGLOBIN 13.6 g/dL (13.5-17.0); LYMPHOCYTES % (AUTO) 14.1 % (13-45); MEAN CORPUSCULAR HEMOGLOBIN 33.4 pg (27.0-33.4); MEAN CORPUSCULAR HGB CONC 34.9 g/dL (32.0-36.0); MEAN CORPUSCULAR VOLUME 96 fl (80-97); MONOCYTES % (AUTO) 8.2 % (3-13); PLATELET COUNT 171 10^3/uL (150-450); RED BLOOD COUNT 4.07 10^6/uL (4.35-5.55); RED CELL DISTRIBUTION WIDTH 15.5 % (11.5-14.0); SEGMENTED NEUTROPHILS % (AUTO) 71.5 % (42-78); TOTAL CELLS COUNTED % (AUTO) 100 %; WHITE BLOOD COUNT 4.9 10^3/uL (4.0-10.5)
[2019-04-08 13:43] LABS: ANION GAP 8 (5-19); BLOOD UREA NITROGEN 28 mg/dL (7-20); CALCIUM 8.8 mg/dL (8.4-10.2); CARBON DIOXIDE 33 mmol/L (22-30); CHLORIDE 93 mmol/L (98-107); GLUCOSE 115 mg/dL (75-110); POTASSIUM 4.9 mmol/L (3.6-5.0)
--- NOTE | 2019-04-08 13:45 | PDOC PROGRESS REPORT ---
Subjective Progress Note for:: 04/08/19 Subjective:: This is a 58-year-old male who was admitted for acute on chronic respiratory failure secondary to CHF exacerbation, COPD and pneumonia. Patient was started on IV steroids, antibiotics and breathing treatments. He was placed on BiPAP. He was also started on dobutamine drip by cardiology. No acute event overnight. Patient was weaned off BiPAP. Patient is currently saturating well 04/05: He is currently saturating at 92 to 94% on 4 L via nasal cannula. He say s that his shortness of breath has improved today. Denies chest pain. 04/06: Patient desaturated to high 80s yesterday afternoon and was placed back on BiPAP. Currently saturating well on BiPAP. Dobutamine drip was increased yesterday per cardiology. He continues to report slow but gradual improvement in his shortness of breath but is not at his baseline yet. Denies chest pain. 04/07: Patient was weaned off BiPAP. Currently saturating well on nasal cannula. Still on dobutamine drip per cardiology. He continues to feel better and says that his shortness of breath is significantly improved. Denies chest pain. 04/08: No acute event overnight. He has been off dobutamine drip this morning. Denies acute complaints. Saturating well on nasal cannula. Will have PT evaluate patient. Echo pending. Anticipate discharge once cleared by cardiology. Reason For Visit: ACUTE PULMONARY EDEMA, ACUTE ON CHRONIC DIASTOLIC Physical Exam Vital Signs: Temp Pulse Resp BP Pulse Ox 97.3 F 68 22 H 114/66 98 04/08/19 11:22 04/08/19 11:22 04/08/19 11:22 04/08/19 11:22 04/08/19 11:22 Intake & Output 04/07/19 04/08/19 04/09/19 06:59 06:59 06:59 Intake Total 2324 1729 522 Output Total 1750 1000 100 Balance 574 729 422 Weight 257 lb 15.053 oz 257 lb 7.999 oz General appearance: PRESENT: no acute distress, well-developed, well-nourished Head exam: PRESENT: atraumatic, normocephalic Eye exam: PRESENT: conjunctiva pink, EOMI, PERRLA. ABSENT: scleral icterus Ear exam: PRESENT: normal external ear exam Mouth exam: PRESENT: moist, tongue midline Neck exam: ABSENT: carotid bruit, JVD, lymphadenopathy, thyromegaly Respiratory exam: PRESENT: rhonchi. ABSENT: rales, wheezes Cardiovascular exam: PRESENT: RRR. ABSENT: diastolic murmur, rubs, systolic murmur Pulses: PRESENT: normal dorsalis pedis pul GI/Abdominal exam: PRESENT: normal bowel sounds, soft. ABSENT: distended, guarding, mass, organolmegaly, rebound, tenderness Rectal exam: PRESENT: deferred Extremities exam: PRESENT: +2 edema Neurological exam: PRESENT: alert, awake, oriented to person, oriented to place, CN II-XII grossly intact. ABSENT: motor sensory deficit Results Laboratory Results: 04/08/19 13:16 04/08/19 13:16 WBC 4.9 RBC 4.07 L Hgb 13.6 Hct 39.0 MCV 96 MCH 33.4 MCHC 34.9 RDW 15.5 H Plt Count 171 Seg Neutrophils % 71.5 04/02/19 22:30 Blood Blood Culture - Final NO GROWTH IN 5 DAYS 04/02/19 21:10 Blood Blood Culture - Final NO GROWTH IN 5 DAYS 04/02/19 04/02/19 04/02/19 20:50 20:50 20:50 Creatine Kinase 31 L CK-MB (CK-2) Troponin I < 0.012 NT-Pro-B Natriuret Pep 4680 H 04/03/19 04/03/19 04/03/19 04:56 04:56 10:09 Creatine Kinase 43 L 31 L CK-MB (CK-2) 0.38 Troponin I < 0.012 NT-Pro-B Natriuret Pep 04/03/19 04/03/19 04/03/19 10:09 14:15 14:25 Creatine Kinase 31 L CK-MB (CK-2) < 0.22 < 0.22 Troponin I < 0.012 0.013 NT-Pro-B Natriuret Pep 04/05/19 06:25 Creatine Kinase CK-MB (CK-2) Troponin I NT-Pro-B Natriuret Pep 307 H Impressions: Acute Abdomen Series 04/02/19 21:29 IMPRESSION: Cardiomegaly. Retrocardiac infiltrate. Nonspecific, nonobstructive bowel gas pattern copyright 2011 [employer] All Rights Reserved Chest/Abdomen CTA 04/02/19 23:08 IMPRESSION: Patchy areas of possible pneumonia bilaterally. Cardiomegaly with no aortic dissection or aneurysm. No pulmonary embolus. Chest X-Ray 04/06/19 00:00 IMPRESSION: 1. Patchy bilateral opacities are better detailed on prior CT chest April 03, 2019. 2. Persistent enlargement of the cardiac silhouette. Assessment and Plan - Diagnosis (1) Acute respiratory failure with hypoxia Is this a current diagnosis for this admission?: Yes Plan: Improved. Multifactorial from CHF and COPD exacerbation and concomitant pneumonia. 03/26: Weaned off BiPAP. Currently on 4 L via nasal cannula. 04/06: Patient desaturated to high 80s yesterday afternoon and was placed back on BiPAP. Currently saturating well on BiPAP. 04/07: Weaned off BiPAP. Currently saturating well on nasal cannula. 04/08: Doing well on nasal cannula. (2) CHF (congestive heart failure) Qualifiers: Heart failure type: unspecified Heart failure chronicity: acute on chronic Qualified Code(s): I50.9 - Heart failure, unspecified Is this a current diagnosis for this admission?: Yes Plan: Acute on chronic diastolic heart failure. Preserved LV function in 2016. Suspect right-sided heart failure as well from his longstanding severe COPD. Currently on dobutamine by cardiology. Cardiology plans to pursue echocardiogram later. 04/06: Dobutamine drip was increased yesterday per cardiology. Decrease Bumex as creatinine is trending up. 04/07: IV Bumex DCed per cardio. 04/08: Echo pending. (3) COPD (chronic obstructive pulmonary disease) Qualifiers: COPD type: COPD with acute exacerbation Qualified Code(s): J44.1 - Chronic obstructive pulmonary disease with (acute) exacerbation Is this a current diagnosis for this admission?: Yes Plan: Continue IV steroids and breathing treatments. 2: Switched to prednisone. 3: Continue breathing treatments and prednisone. (4) Pneumonia Is this a current diagnosis for this admission?: Yes Plan: Continue antibiotics. 3: Switch IV antibiotics to PO Levaquin. (5) Acute kidney injury Is this a current diagnosis for this admission?: Yes Plan: Likely related to IV diuresis. Currently on Bumex 1 mg IV every 6. Decrease Bumex to every 12. 12: Creatinine improved today. Bumex DCed. 04/08: Repeat BMP. - Plan Summary Summary: Patient will be admitted to the medical floor on telemetry and will receive the customary supportive and symptomatic treatments. He will be seen in consultation by Dr. Diaz for further evaluation and treatment of his congestive heart failure. He will be treated initially with a IV Bumex 1 mg shannon ry 6 hours. He will also be treated with Nitrol 2% ointment 1 g applied every 6 hours. He will receive morphine sulfate 2 mg IV every hour as needed severe dyspnea. Serial cardiac enzymes will be obtained. CBCs and metabolic profiles with magnesium levels will be obtained as needed. 04/04/2019 Temperature 99.3. As of 80 blood pressure on 5 and half liters WBCs 5.1 cultures so far are negative Dr. Diaz has seen the patient but unfortunately the consult note is absent, what looks to be a computer error. I will discuss this with him. Patient currently on cefepime and Zithromax Patient also on IV Bumex Patient did have a CT angiogram on admission for an elevated d-dimer which show ed possible pneumonia bilaterally, lower lobes as well as the left upper lobe however no pulmonary embolism Patient is being seen by discharge planning because he lives alone at home. Continue IV antibiotics continue Bumex. We will recheck labs in the morning. - Time Time Spent with patient: 25-34 minutes
--- NOTE | 2019-04-08 19:05 | Progress Note ---
Provider Note Provider Note: CARDIOLOGY PROGRESS NOTE by Dr. Susan Diaz on 04/08/2019. SUBJECTIVE:: Patient feels much improved. He denies any shortness of breath. The patient has chronic orthopnea but no PND. There is no arrhythmia seen on the monitor. The patient denies any cough or wheezing. His COPD is back to baseline. He has no chest pain or discomfort PHYSICAL EXAMINATION: The patient is morbidly obese. At present in no acute distress. Selected Entries 04/08/19 11:22 Temperature 97.3 F Temperature Axillary Source Pulse Rate 68 Respiratory 22 H Rate Blood Pressure 114/66 Blood Pressure 82 Mean BP Location Right Arm BP Position Supine O2 Sat by Pulse 98 Oximetry Oxygen Flow 6.00 Rate Oxygen Delivery Nasal Cannula Method HEAD: Is atraumatic normocephalic. EYES: Pupils are equal round regular reactive light accommodation. ENT is negative. NECK: Supple. There is no JVD present. Carotids are equal there is no bruit. There is no lymphadenopathy. There is no goiter. There is no accessory muscle respiration use. Trachea central. LUNGS: There is diminished air entry prolonged expiration. There is scattered rhonchi. Bibasilar dry crackles of pneumonia. There is no rales of CHF. HEART: S1-S2 is heard. There is no S3 gallop. There is no S4 gallop. There is systolic murmur left sternal border and the apex there is no rub. ABDOMEN: Is obese. Nontender. There is no paraspinal megaly. Bowel sounds are well heard. EXTREMITIES: Femorals are difficult to palpate. There is no femoral bruits. Unable to palpate leg pulses. There is 1+ bilateral leg edema with chronic venous stasis dermatitis changes. TRANSIT PLANNING DIRECTOR: The patient is conscious, awake alert and moves all 4 extremities. PSYCHIATRIC: Unable to make a psychiatric exam due to the lack of communication with the pa. There is no focal deficits. PSYCHIATRIC: Patient judgment insight are intact although is of slightly slow mentation. He does not appear to be agitated or confused. He is not anxious. ECHOCARDIOGRAM: Is a limited study. Technically difficult study. Overall ejec tion fraction is low normal at 55%. There is no definite wall motion abnormality. There is no significant valvular lesions. There is mild gradient across the aortic valve. There is no hemodynamically significant aortic stenosis. Labs- All tests 24 hr 04/08/19 04/08/19 13:16 13:16 WBC 4.9 RBC 4.07 L Hgb 13.6 Hct 39.0 MCV 96 MCH 33.4 MCHC 34.9 RDW 15.5 H Plt Count 171 Lymph % (Auto) 14.1 [place] % (Auto) 8.2 Eos % (Auto) 5.5 Baso % (Auto) 0.7 Absolute Neuts (auto) 3.5 Absolute Lymphs (auto) 0.7 Absolute Monos (auto) 0.4 Absolute Eos (auto) 0.3 Absolute Basos (auto) 0.0 Seg Neutrophils % 71.5 Sodium 133.9 L Potassium 4.9 Chloride 93 L Carbon Dioxide 33 H Anion Gap 8 BUN 28 H Creatinine 1.06 Est GFR ( Amer) > 60 Est GFR (MDRD) Non-Af > 60 Glucose 115 H Calcium 8.8 Acute Abdomen Series 04/02/19 21:29 IMPRESSION: Cardiomegaly. Retrocardiac infiltrate. Nonspecific, nonobstructive bowel gas pattern copyright 2011 [employer]- All Rights Reserved Chest/Abdomen CTA 04/02/19 23:08 IMPRESSION: Patchy areas of possible pneumonia bilaterally. Cardiomegaly with no aortic dissection or aneurysm. No pulmonary embolus. Chest X-Ray 04/06/19 00:00 IMPRESSION: 1. Patchy bilateral opacities are better detailed on prior CT chest April 03, 2019. 2. Persistent enlargement of the cardiac silhouette. IMPRESSION/RECOMMENDATION: 1. Acute on chronic respiratory failure. This is multifactorial secondary to congestive heart failure, acute exacerbation of COPD and pneumonia. 2. Acute on chronic systolic heart failure: The patient is off dobutamine drip. His renal function is come back to normal. His echocardiogram shows normal LV ejection fraction.. Recommend starting the patient on Bumex 1 mg p.o. twice daily. 3. Acute exacerbation of COPD: Continue bronchodilators and antibiotics and respiratory treatments and steroids. This is back to baseline. There is no evidence of acute exacerbation of COPD. 4. Pneumonia: Continue antibiotics. There is improvement in the chest x-ray. 5. Coronary artery disease: History of remote myocardial infarction history of stent: Patient without any anginal symptoms. No evidence of acute coronary syndrome 6. Cardiomyopathy: His last echo done in 2016 showed his LV ejection fraction was done normal limits. But not he has not had an echo recently. Will later get an echocardiogram. If this shows compromised LV systolic function, then will add PATRICIA inhibitor. 7. Hypertension: Well-controlled. Although little finger ventricle is mildly dilated. LV ejection fraction is low normal at 55%. 8. Suspect significant pulmonary hypertension. 9. Chronic leg edema. This appears to be at chronic baseline state. 10. Worsening renal function. This is improved with Medication reviewed. Medical regimen and management plan discussed with the attending provider on the case. Medical decision making is of moderate complexity. Cardiac status stable. The patient can be discharged from the cardiac standpoint. Medical decision making is of moderate complexity. Will sign off the case and follow the patient in the office, since he is a patient of mine who follows with me in the office.
--- NOTE | 2019-04-08 19:26 | EKG REPORT ---
SEVERITY:- ABNORMAL ECG - SINUS RHYTHM VENTRICULAR TRIGEMINY LEFT AXIS DEVIATION BORDERLINE T ABNORMALITIES, ANT-LAT LEADS BORDERLINE PROLONGED QT INTERVAL : Confirmed by: Eyad Lucas MD 08-Apr-2019 19:25:43
--- NOTE | 2019-04-08 22:20 | XCELERA REPORT ---
[address] [address] Transthoracic Echocardiogram Report Name: BERNICE KHAN Age: 58 yrs Gender: Male : 1960 Patient Status: Inpatient Patient Location: [facility]^A Study Date: 04/08/2019 08:58 AM Height: 69 in Weight: 257 lb BSA: 2.3 m2 Procedure: A two-dimensional transthoracic echocardiogram with color flow and Doppler was performed. Study Quality: Fair. Reason For Study: CHF /CARDIOmyopathy History: CHF /CARDIOmyopathy. Ordering Physician: SUSAN WEST Performed By: Aiden Arambula Interpretation Summary The left ventricle is borderline dilated. There is normal left ventricular wall thickness. LV EF is 55% to 60% Left ventricular systolic function is normal. Doppler measurements suggest impaired left ventricular relaxation, which is associated with grade I/IV or mild diastolic dysfunction There is hypokinesis of the apical anterior wall.Rest of the LV villar contract normally. There is no thrombus. No ASD ,VSD ,or PFO seen. The right ventricle is mildly dilated. The right ventricle is not well visualized secondary to technical limitations The right atrium is mildly dilated. The left atrial size is normal. There is no evidence of mitral valve prolapse. There is no vegetation seen on the mitral valve. There is no mitral valve stenosis. There is a trace amount of mitral regurgitation There is no aortic valvular vegetation. There is no aortic valve stenosis There is no LVOT obstruction. No aortic regurgitation is present. There is no tricuspid stenosis. There is a trace to mild amount of tricuspid regurgitation RVSP is 37 mm of Hg , with RA mean of 15. There is mild pulmonary hypertension by echo There is no pulmonic valvular stenosis. There is a trace amount of pulmonic regurgitation There is no pericardial effusion. MMode/2D Measurements & Calculations RVDd: 4.0 cm LVIDd: 6.4 cm FS: 30.2 % Ao root diam: 2.9 cm IVSd: 1.0 cm LVIDs: 4.5 cm EDV(Teich): 211.6 ml Ao root area: 6.6 cm2 LVPWd: 0.98 cm ESV(Teich): 92.3 ml LA dimension: 4.0 cm EF(Teich): 56.4 % Doppler Measurements & Calculations MV E max shubham: MV P1/2t max shubham: Ao V2 max: LV V1 max P.4 cm/sec 92.7 cm/sec 261.7 cm/sec 12.4 mmHg MV A max shubham: MV P1/2t: 82.3 msec Ao max PG: LV V1 max: 105.2 cm/sec MVA(P1/2t): 2.7 cm2 27.4 mmHg 175.8 cm/sec MV E/A: 0.77 MV dec slope: 329.6 cm/sec2 MV dec time: 0.28 sec PA V2 max: TR max shubham: MV P1/2t-pr_phl: 132.7 cm/sec 232.1 cm/sec 82.3 msec PA max P.0 mmHgTR max P.6 mmHg Left Ventricle The left ventricle is borderline dilated. There is normal left ventricular wall thickness. LV EF is 55% to 60%. Left ventricular systolic function is normal. Doppler measurements suggest impaired left ventricular relaxation, which is associated with grade I/IV or mild diastolic dysfunction. There is hypokinesis of the apical anterior wall.Rest of the LV villar contract normally. There is no thrombus. No ASD ,VSD ,or PFO seen. Right Ventricle The right ventricle is mildly dilated. The right ventricle is not well visualized secondary to technical limitations. Atria The right atrium is mildly dilated. The left atrial size is normal. Mitral Valve There is no evidence of mitral valve prolapse. There is no vegetation seen on the mitral valve. There is no mitral valve stenosis. There is a trace amount of mitral regurgitation. Aortic Valve There is no aortic valvular vegetation. There is no aortic valve stenosis. There is no LVOT obstruction. No aortic regurgitation is present. Tricuspid Valve There is no tricuspid stenosis. There is a trace to mild amount of tricuspid regurgitation. RVSP is 37 mm of Hg , with RA mean of 15. There is mild pulmonary hypertension by echo. Pulmonic Valve There is no pulmonic valvular stenosis. There is a trace amount of pulmonic regurgitation. Great Vessels The aortic root is normal size. Effusions There is no pericardial effusion. : SUSAN WEST Lakshmi
[2019-04-09] MEDS: IPRATROPIUM/ALBUTEROL 0.5-2.5 MG/3 ML AMPUL NEB SCH ×3 (00:56→16:22)
[2019-04-09] MEDS: HEPARIN SOD (PORCINE) 5,000 UNIT/ML 1 ML VIAL SUBCUT SCH ×3 (05:34→22:39)
[2019-04-09] MEDS: BUMETANIDE 1 MG TABLET PO SCH ×2 (11:59→18:54)
[2019-04-09] MEDS: PREDNISONE 10 MG TABLET PO SCH ×2 (11:59→18:54)
[2019-04-09] MEDS: DOCUSATE SODIUM 100 MG CAPSULE PO SCH (12:00)
[2019-04-09] MEDS: LEVOFLOXACIN 500 MG TABLET PO SCH (12:00)
[2019-04-09] MEDS: FAMOTIDINE 20 MG TABLET PO SCH ×2 (12:00→22:39)
[2019-04-09] MEDS: POTASSIUM CHLORIDE 10 MEQ TABLET.ER PO SCH ×3 (12:06→18:54)
[2019-04-09] MEDS: ISOSORBIDE MONONITRATE 30 MG TAB.ER.24H PO SCH (12:08)
[2019-04-09] MEDS: METOPROLOL SUCCINATE 25 MG TAB.SR.24H PO SCH (12:09)
[2019-04-09] MEDS: CLOPIDOGREL BISULFATE 75 MG TABLET PO SCH (12:09)
[2019-04-09] MEDS: LISINOPRIL 5 MG TABLET PO SCH ×2 (12:10→22:37)
--- NOTE | 2019-04-09 13:01 | RADIOLOGY REPORT (SQ) ---
EXAM DESCRIPTION: CHEST SINGLE VIEW COMPLETED DATE/TIME: 04/09/2019 10:57 am REASON FOR STUDY: reassess infiltrates COMPARISON: Chest films 04/02/2019, 04/06/2019 CT chest 04/03/2019 EXAM PARAMETERS: NUMBER OF VIEWS: One view. TECHNIQUE: Single frontal radiographic view of the chest acquired. RADIATION DOSE: NA LIMITATIONS: None. FINDINGS: LUNGS AND PLEURA: Bibasilar bandlike airspace disease is present likely atelectasis. Lungs are otherwise well inflated and clear. No pleural effusion. No pneumothorax. MEDIASTINUM AND HILAR STRUCTURES: No masses. Contour normal. HEART AND VASCULAR STRUCTURES: Moderate cardiomegaly BONES: No acute findings. HARDWARE: None in the chest. OTHER: No other significant finding. IMPRESSION: Bibasilar atelectasis Moderate cardiomegaly TECHNICAL DOCUMENTATION: JOB ID: [id number] [employer]- All Rights Reserved Reading location - IP/workstation name: [email or web address]
--- NOTE | 2019-04-09 13:55 | EKG REPORT ---
SEVERITY:- ABNORMAL ECG - SINUS RHYTHM VENTRICULAR TRIGEMINY LEFT ANTERIOR FASCICULAR BLOCK BORDERLINE R WAVE PROGRESSION, ANTERIOR LEADS BORDERLINE T ABNORMALITIES, ANT-LAT LEADS BORDERLINE PROLONGED QT INTERVAL : Confirmed by: Eyad Lucas MD 09-Apr-2019 13:54:50
--- NOTE | 2019-04-09 15:53 | PDOC PROGRESS REPORT ---
Subjective Progress Note for:: 04/09/19 Subjective:: This is a 58-year-old male who was admitted for acute on chronic respiratory failure secondary to CHF exacerbation, COPD and pneumonia. Patient was started on IV steroids, antibiotics and breathing treatments. He was placed on BiPAP. He was also started on dobutamine drip by cardiology. No acute event overnight. Patient was weaned off BiPAP. Patient is currently saturating well 04/05: He is currently saturating at 92 to 94% on 4 L via nasal cannula. He say s that his shortness of breath has improved today. Denies chest pain. 04/06: Patient desaturated to high 80s yesterday afternoon and was placed back on BiPAP. Currently saturating well on BiPAP. Dobutamine drip was increased yesterday per cardiology. He continues to report slow but gradual improvement in his shortness of breath but is not at his baseline yet. Denies chest pain. 04/07: Patient was weaned off BiPAP. Currently saturating well on nasal cannula. Still on dobutamine drip per cardiology. He continues to feel better and says that his shortness of breath is significantly improved. Denies chest pain. 04/08: No acute event overnight. He has been off dobutamine drip this morning. Denies acute complaints. Saturating well on nasal cannula. Will have PT evaluate patient. Echo pending. Anticipate discharge once cleared by cardiology. 04/09: Patient had episodes of desaturation while on 4L nasal cannula and was placed on BiPAP. He will likely need BiPAP at home as well for his COPD and pulmonary hypertension. He denies chest pain or shortness of breath. Awaiting PT evaluation. Echo showed normal EF. Reason For Visit: ACUTE PULMONARY EDEMA, ACUTE ON CHRONIC DIASTOLIC Physical Exam Vital Signs: Temp Pulse Resp BP Pulse Ox 97.8 F 61 20 128/62 H 87 L 04/09/19 11:06 04/09/19 11:06 04/09/19 11:06 04/09/19 11:06 04/09/19 11:06 Intake & Output 04/08/19 04/09/19 04/10/19 06:59 06:59 06:59 Intake Total 1729 1002 Output Total 1000 2250 Balance 729 -1248 Weight 257 lb 7.999 oz 269 lb 6.478 oz 269 lb 6.478 oz General appearance: PRESENT: no acute distress, well-developed, well-nourished Head exam: PRESENT: atraumatic, normocephalic Eye exam: PRESENT: conjunctiva pink, EOMI, PERRLA. ABSENT: scleral icterus Ear exam: PRESENT: normal external ear exam Mouth exam: PRESENT: moist, tongue midline Neck exam: ABSENT: carotid bruit, JVD, lymphadenopathy, thyromegaly Respiratory exam: PRESENT: rhonchi. ABSENT: rales, wheezes Cardiovascular exam: PRESENT: RRR. ABSENT: diastolic murmur, rubs, systolic murmur Pulses: PRESENT: normal dorsalis pedis pul GI/Abdominal exam: PRESENT: normal bowel sounds, soft. ABSENT: distended, guarding, mass, organolmegaly, rebound, tenderness Rectal exam: PRESENT: deferred Extremities exam: PRESENT: +2 edema Neurological exam: PRESENT: alert, awake, oriented to person, oriented to place, CN II-XII grossly intact. ABSENT: motor sensory deficit Results Laboratory Results: 04/08/19 13:16 04/08/19 13:16 04/02/19 04/02/19 04/02/19 20:50 20:50 20:50 Creatine Kinase 31 L CK-MB (CK-2) Troponin I < 0.012 NT-Pro-B Natriuret Pep 4680 H 04/03/19 04/03/19 04/03/19 04:56 04:56 10:09 Creatine Kinase 43 L 31 L CK-MB (CK-2) 0.38 Troponin I < 0.012 NT-Pro-B Natriuret Pep 04/03/19 04/03/19 04/03/19 10:09 14:15 14:25 Creatine Kinase 31 L CK-MB (CK-2) < 0.22 < 0.22 Troponin I < 0.012 0.013 NT-Pro-B Natriuret Pep 04/05/19 06:25 Creatine Kinase CK-MB (CK-2) Troponin I NT-Pro-B Natriuret Pep 307 H Impressions: Acute Abdomen Series 04/02/19 21:29 IMPRESSION: Cardiomegaly. Retrocardiac infiltrate. Nonspecific, nonobstructive bowel gas pattern copyright 2011 [employer]- All Rights Reserved Chest/Abdomen CTA 04/02/19 23:08 IMPRESSION: Patchy areas of possible pneumonia bilaterally. Cardiomegaly with no aortic dissection or aneurysm. No pulmonary embolus. Chest X-Ray 04/09/19 09:48 IMPRESSION: Bibasilar atelectasis Moderate cardiomegaly Assessment and Plan - Diagnosis (1) Acute respiratory failure with hypoxia Is this a current diagnosis for this admission?: Yes Plan: Improved. Multifactorial from CHF and COPD exacerbation and concomitant pneumonia. 03/26: Weaned off BiPAP. Currently on 4 L via nasal cannula. 04/06: Patient desaturated to high 80s yesterday afternoon and was placed back on BiPAP. Currently saturating well on BiPAP. 04/07: Weaned off BiPAP. Currently saturating well on nasal cannula. 04/08: Doing well on nasal cannula. 04/09: Patient had episodes of desaturation while on 4L nasal cannula and was placed back on BiPAP. He will likely need BiPAP at home as well for his COPD and pulmonary hypertension. (2) CHF (congestive heart failure) Qualifiers: Heart failure type: unspecified Heart failure chronicity: acute on chronic Qualified Code(s): I50.9 - Heart failure, unspecified Is this a current diagnosis for this admission?: Yes Plan: Acute on chronic diastolic heart failure. Preserved LV function in 2016. Suspect right-sided heart failure as well from his longstanding severe COPD. Currently on dobutamine by cardiology. Cardiology plans to pursue echocardiogram later. 04/06: Dobutamine drip was increased yesterday per cardiology. Decrease Bumex as creatinine is trending up. 04/07: IV Bumex DCed per cardio. 04/08: Echo pending. 04/09: Echo showed normal EF. (3) COPD (chronic obstructive pulmonary disease) Qualifiers: COPD type: COPD with acute exacerbation Qualified Code(s): J44.1 - Chronic obstructive pulmonary disease with (acute) exacerbation Is this a current diagnosis for this admission?: Yes Plan: Continue IV steroids and breathing treatments. 04/07: Switched to prednisone. 04/08: Continue breathing treatments and prednisone. (4) Pneumonia Is this a current diagnosis for this admission?: Yes Plan: Continue antibiotics. 04/08: Switch IV antibiotics to PO Levaquin. 04/09: Continue PO Levaquin. (5) Acute kidney injury Is this a current diagnosis for this admission?: Yes Plan: Likely related to IV diuresis. Currently on Bumex 1 mg IV every 6. Decrease Bumex to every 12. 04/07: Creatinine improved today. Bumex DCed. 04/08: Resolved. - Plan Summary Summary: Patient will be admitted to the medical floor on telemetry and will receive the customary supportive and symptomatic treatments. He will be seen in consultation by Dr. Diaz for further evaluation and treatment of his congestive heart failure. He will be treated initially with a IV Bumex 1 mg every 6 hours. He will also be treated with Nitrol 2% ointment 1 g applied every 6 hours. He will receive morphine sulfate 2 mg IV every hour as needed severe dyspnea. Serial cardiac enzymes will be obtained. CBCs and metabolic profiles with magnesium levels will be obtained as needed. 04/04/2019 Temperature 99.3. As of 80 blood pressure on 5 and half liters WBCs 5.1 cultures so far are negative Dr. Diaz has seen the patient but unfortunately the consult note is absent, what looks to be a computer error. I will discuss this with him. Patient currently on cefepime and Zithromax Patient also on IV Bumex Patient did have a CT angiogram on admission for an elevated d-dimer which showed possible pneumonia bilaterally, lower lobes as well as the left upper lobe however no pulmonary embolism Patient is being seen by discharge planning because he lives alone at home. Continue IV antibiotics continue Bumex. We will recheck labs in the morning. - Time Time Spent with patient: 25-34 minutes
[2019-04-10] MEDS: IPRATROPIUM/ALBUTEROL 0.5-2.5 MG/3 ML AMPUL NEB SCH ×3 (00:19→15:30)
[2019-04-10] MEDS: HEPARIN SOD (PORCINE) 5,000 UNIT/ML 1 ML VIAL SUBCUT SCH ×3 (05:45→21:13)
[2019-04-10] MEDS: DOCUSATE SODIUM 100 MG CAPSULE PO SCH (11:26)
[2019-04-10] MEDS: POTASSIUM CHLORIDE 10 MEQ TABLET.ER PO SCH ×3 (11:26→18:43)
[2019-04-10] MEDS: FAMOTIDINE 20 MG TABLET PO SCH ×2 (11:26→21:12)
[2019-04-10] MEDS: CLOPIDOGREL BISULFATE 75 MG TABLET PO SCH (11:27)
[2019-04-10] MEDS: LISINOPRIL 5 MG TABLET PO SCH ×2 (11:27→21:12)
[2019-04-10] MEDS: PREDNISONE 10 MG TABLET PO SCH ×2 (11:28→18:43)
[2019-04-10] MEDS: ISOSORBIDE MONONITRATE 30 MG TAB.ER.24H PO SCH (11:28)
[2019-04-10] MEDS: BUMETANIDE 1 MG TABLET PO SCH ×2 (11:28→18:45)
[2019-04-10] MEDS: LEVOFLOXACIN 500 MG TABLET PO SCH (11:28)
--- NOTE | 2019-04-10 17:22 | PDOC PROGRESS REPORT ---
Subjective Progress Note for:: 04/10/19 Subjective:: This is a 58-year-old male who was admitted for acute on chronic respiratory failure secondary to CHF exacerbation, COPD and pneumonia. Patient was started on IV steroids, antibiotics and breathing treatments. He was placed on BiPAP. He was also started on dobutamine drip by cardiology. No acute event overnight. Patient was weaned off BiPAP. Patient is currently saturating well 04/05: He is currently saturating at 92 to 94% on 4 L via nasal cannula. He say s that his shortness of breath has improved today. Denies chest pain. 04/06: Patient desaturated to high 80s yesterday afternoon and was placed back on BiPAP. Currently saturating well on BiPAP. Dobutamine drip was increased yesterday per cardiology. He continues to report slow but gradual improvement in his shortness of breath but is not at his baseline yet. Denies chest pain. 04/07: Patient was weaned off BiPAP. Currently saturating well on nasal cannula. Still on dobutamine drip per cardiology. He continues to feel better and says that his shortness of breath is significantly improved. Denies chest pain. 04/08: No acute event overnight. He has been off dobutamine drip this morning. Denies acute complaints. Saturating well on nasal cannula. Will have PT evaluate patient. Echo pending. Anticipate discharge once cleared by cardiology. 04/09: Patient had episodes of desaturation while on 4L nasal cannula and was placed on BiPAP. He will likely need BiPAP at home as well for his COPD and pulmonary hypertension. He denies chest pain or shortness of breath. Awaiting PT evaluation. Echo showed normal EF. 04/10: No acute event overnight. He continues to intermittently require BIPAP. Denies chest pain or SOB. Awaiting re-evaluation and recommendation from PT. Reason For Visit: ACUTE PULMONARY EDEMA, ACUTE ON CHRONIC DIASTOLIC Physical Exam Vital Signs: Temp Pulse Resp BP Pulse Ox 97.4 F 26 L 16 125/74 91 L 04/10/19 11:45 04/10/19 11:45 04/10/19 11:45 04/10/19 11:45 04/10/19 11:45 Intake & Output 04/09/19 04/10/19 04/11/19 06:59 06:59 06:59 Intake Total 1002 480 600 Output Total 2250 2024 325 Balance -1248 -1545 275 Weight 269 lb 6.478 oz 242 lb 11.663 oz General appearance: PRESENT: no acute distress, well-developed, well-nourished Head exam: PRESENT: atraumatic, normocephalic Eye exam: PRESENT: conjunctiva pink, EOMI, PERRLA. ABSENT: scleral icterus Ear exam: PRESENT: normal external ear exam Mouth exam: PRESENT: moist, tongue midline Neck exam: ABSENT: carotid bruit, JVD, lymphadenopathy, thyromegaly Respiratory exam: PRESENT: rhonchi. ABSENT: rales, wheezes Cardiovascular exam: PRESENT: RRR. ABSENT: diastolic murmur, rubs, systolic murmur Pulses: PRESENT: normal dorsalis pedis pul GI/Abdominal exam: PRESENT: normal bowel sounds, soft. ABSENT: distended, guar ding, mass, organolmegaly, rebound, tenderness Rectal exam: PRESENT: deferred Extremities exam: PRESENT: +2 edema Neurological exam: PRESENT: alert, awake, oriented to person, CN II-XII grossly intact. ABSENT: motor sensory deficit Results Laboratory Results: 04/08/19 13:16 04/08/19 13:16 04/02/19 04/02/19 04/02/19 20:50 20:50 20:50 Creatine Kinase 31 L CK-MB (CK-2) Troponin I < 0.012 NT-Pro-B Natriuret Pep 4680 H 04/03/19 04/03/19 04/03/19 04:56 04:56 10:09 Creatine Kinase 43 L 31 L CK-MB (CK-2) 0.38 Troponin I < 0.012 NT-Pro-B Natriuret Pep 04/03/19 04/03/19 04/03/19 10:09 14:15 14:25 Creatine Kinase 31 L CK-MB (CK-2) < 0.22 < 0.22 Troponin I < 0.012 0.013 NT-Pro-B Natriuret Pep 04/05/19 06:25 Creatine Kinase CK-MB (CK-2) Troponin I NT-Pro-B Natriuret Pep 307 H Impressions: Acute Abdomen Series 04/02/19 21:29 IMPRESSION: Cardiomegaly. Retrocardiac infiltrate. Nonspecific, nonobstructive bowel gas pattern copyright 2011 [employer]- All Rights Reserved Chest/Abdomen CTA 04/02/19 23:08 IMPRESSION: Patchy areas of possible pneumonia bilaterally. Cardiomegaly with no aortic dissection or aneurysm. No pulmonary embolus. Chest X-Ray 04/09/19 09:48 IMPRESSION: Bibasilar atelectasis Moderate cardiomegaly Assessment and Plan - Diagnosis (1) Acute respiratory failure with hypoxia Is this a current diagnosis for this admission?: Yes Plan: Improved. Multifactorial from CHF and COPD exacerbation and concomitant pneumonia. 03/26: Weaned off BiPAP. Currently on 4 L via nasal cannula. 04/06: Patient desaturated to high 80s yesterday afternoon and was placed back on BiPAP. Currently saturating well on BiPAP. 04/07: Weaned off BiPAP. Currently saturating well on nasal cannula. 04/08: Doing well on nasal cannula. 04/09: Patient had episodes of desaturation while on 4L nasal cannula and was placed back on BiPAP. He will likely need BiPAP at home as well for his COPD and pulmonary hypertension. (2) Pneumonia Is this a current diagnosis for this admission?: Yes Plan: Continue antibiotics. 04/08: Switch IV antibiotics to PO Levaquin. 04/10: Continue PO Levaquin. (3) CHF (congestive heart failure) Qualifiers: Heart failure type: unspecified Heart failure chronicity: acute on chronic Qualified Code(s): I50.9 - Heart failure, unspecified Is this a current diagnosis for this admission?: Yes Plan: Acute on chronic diastolic heart failure. Preserved LV function in 2016. Suspect right-sided heart failure as well from his longstanding severe COPD. Currently on dobutamine by cardiology. Cardiology plans to pursue echocardiogram later. 04/06: Dobutamine drip was increased yesterday per cardiology. Decrease Bumex as creatinine is trending up. 04/07: IV Bumex DCed per cardio. 04/08: Echo pending. 04/09: Echo showed normal EF. (4) COPD (chronic obstructive pulmonary disease) Qualifiers: COPD type: COPD with acute exacerbation Qualified Code(s): J44.1 - Chronic obstructive pulmonary disease with (acute) exacerbation Is this a current diagnosis for this admission?: Yes Plan: Continue IV steroids and breathing treatments. 04/07: Switched to prednisone. 04/08: Continue breathing treatments and prednisone. (5) Acute kidney injury Is this a current diagnosis for this admission?: Yes Plan: Likely related to IV diuresis. Currently on Bumex 1 mg IV every 6. Decrease Bumex to every 12. 04/07: Creatinine improved today. Bumex DCed. 04/08: Resolved. - Plan Summary Summary: Patient will be admitted to the medical floor on telemetry and will receive the customary supportive and symptomatic treatments. He will be seen in consultation by Dr. Diaz for further evaluation and treatment of his congestive heart failure. He will be treated initially with a IV Bumex 1 mg every 6 hours. He will also be treated with Nitrol 2% ointment 1 g applied every 6 hours. He will receive morphine sulfate 2 mg IV every hour as needed severe dyspnea. Serial cardiac enzymes will be obtained. CBCs and metabolic profiles with magnesium levels will be obtained as needed. 04/04/2019 Temperature 99.3. As of 80 blood pressure on 5 and half liters WBCs 5.1 cultures so far are negative Dr. Diaz has seen the patient but unfortunately the consult note is absent, what looks to be a computer error. I will discuss this with him. Patient currently on cefepime and Zithromax Patient also on IV Bumex Patient did have a CT angiogram on admission for an elevated d-dimer which showed possible pneumonia bilaterally, lower lobes as well as the left upper lobe however no pulmonary embolism Patient is being seen by discharge planning because he lives alone at home. Continue IV antibiotics continue Bumex. We will recheck labs in the morning.
[2019-04-11] MEDS: IPRATROPIUM/ALBUTEROL 0.5-2.5 MG/3 ML AMPUL NEB SCH ×3 (00:44→16:17)
[2019-04-11] MEDS: HEPARIN SOD (PORCINE) 5,000 UNIT/ML 1 ML VIAL SUBCUT SCH ×2 (06:28→13:33)
[2019-04-11 10:54] LABS: ABSOLUTE EOSINOPHILS # (AUTO) 0.1 10^3/uL (0.0-0.6); ABSOLUTE LYMPHOCYTES (AUTO) 1.7 10^3/uL (0.5-4.7); ABSOLUTE MONOCYTES (AUTO) 0.4 10^3/uL (0.1-1.4); ABSOLUTE NEUT (AUTO) 2.6 10^3/uL (1.7-8.2); BASOPHILS % (AUTO) 0.6 % (0-2); EOSINOPHILS % (AUTO) 2.7 % (0-6); HEMATOCRIT 42.9 % (37.9-51.0); HEMOGLOBIN 14.5 g/dL (13.5-17.0); LYMPHOCYTES % (AUTO) 34.3 % (13-45); MEAN CORPUSCULAR HEMOGLOBIN 32.8 pg (27.0-33.4); MEAN CORPUSCULAR HGB CONC 33.9 g/dL (32.0-36.0); MEAN CORPUSCULAR VOLUME 97 fl (80-97); MONOCYTES % (AUTO) 8.3 % (3-13); PLATELET COUNT 223 10^3/uL (150-450); RED BLOOD COUNT 4.43 10^6/uL (4.35-5.55); RED CELL DISTRIBUTION WIDTH 15.9 % (11.5-14.0); SEGMENTED NEUTROPHILS % (AUTO) 54.1 % (42-78); TOTAL CELLS COUNTED % (AUTO) 100 %; WHITE BLOOD COUNT 4.9 10^3/uL (4.0-10.5)
[2019-04-11 11:13] LABS: ANION GAP 10 (5-19); BLOOD UREA NITROGEN 49 mg/dL (7-20); CALCIUM 9.6 mg/dL (8.4-10.2); CARBON DIOXIDE 31 mmol/L (22-30); CHLORIDE 95 mmol/L (98-107); GLUCOSE 157 mg/dL (75-110); POTASSIUM 4.8 mmol/L (3.6-5.0)
[2019-04-11 13:27] VITALS: BP 123/77
[2019-04-11] MEDS: POTASSIUM CHLORIDE 10 MEQ TABLET.ER PO SCH ×2 (13:28→13:29)
[2019-04-11] MEDS: DOCUSATE SODIUM 100 MG CAPSULE PO SCH (13:30)
[2019-04-11] MEDS: PREDNISONE 10 MG TABLET PO SCH (13:31)
[2019-04-11] MEDS: ISOSORBIDE MONONITRATE 30 MG TAB.ER.24H PO SCH (13:31)
[2019-04-11] MEDS: FAMOTIDINE 20 MG TABLET PO SCH (13:32)
[2019-04-11] MEDS: CLOPIDOGREL BISULFATE 75 MG TABLET PO SCH (13:32)
[2019-04-11] MEDS: LEVOFLOXACIN 500 MG TABLET PO SCH (13:32)
[2019-04-11] MEDS: LISINOPRIL 5 MG TABLET PO SCH (13:33)
[2019-04-11] MEDS: BUMETANIDE 1 MG TABLET PO SCH (13:38)
[2019-04-11] MEDS ORDERED: PROMETHAZINE HCL INJ 25 MG/1 ML VIAL IV PRN (14:30)
--- NOTE | 2019-04-11 19:52 | PDOC DISCHARGE SUMMARY ---
Impression - Admit/DC Date/PCP Admission Date/Primary Care Provider: 04/03/19 02:20 SHAYAN WEST MD Discharge Date: 04/11/19 - Discharge Diagnosis (1) Acute respiratory failure with hypoxia Is this a current diagnosis for this admission?: Yes (2) Pneumonia Is this a current diagnosis for this admission?: Yes (3) CHF (congestive heart failure) Is this a current diagnosis for this admission?: Yes (4) COPD (chronic obstructive pulmonary disease) Is this a current diagnosis for this admission?: Yes (5) Acute kidney injury Is this a current diagnosis for this admission?: Yes - Assessment Summary: Patient will be admitted to the medical floor on telemetry and will receive the customary supportive and symptomatic treatments. He will be seen in consultation by Dr. West for further evaluation and treatment of his congestive heart failure. He will be treated initially with a IV Bumex 1 mg every 6 hours. He will also be treated with Nitrol 2% ointment 1 g applied every 6 hours. He will receive morphine sulfate 2 mg IV every hour as needed severe dyspnea. Serial cardiac enzymes will be obtained. CBCs and metabolic profiles with magnesium levels will be obtained as needed. 04/04/2019 Temperature 99.3. As of 80 blood pressure on 5 and half liters WBCs 5.1 cultures so far are negative Dr. West has seen the patient but unfortunately the consult note is absent, what looks to be a computer error. I will discuss this with him. Patient currently on cefepime and Zithromax Patient also on IV Bumex Patient did have a CT angiogram on admission for an elevated d-dimer which showed possible pneumonia bilaterally, lower lobes as well as the left upper lobe however no pulmonary embolism Patient is being seen by discharge planning because he lives alone at home. Continue IV antibiotics continue Bumex. We will recheck labs in the morning. - Additional Information Resuscitation Status: Full Code Discharge Diet: Cardiac Discharge Activity: Activity As Tolerated, Balance Activity w/Rest, Weigh Daily Referrals: PAKO LYONS MD [ACTIVE STAFF] - 05/16/19 9:45 am SHAYAN WEST MD [Primary Care Provider] - 04/19/19 11:45 am (Patient needs a referal for a sleep study within 30 days to continue to qualify for a BiPAP.) Prescriptions: Fluticasone/Salmeterol [Advair 100-50 Diskus 14 Dose/Diskus] 1 inh IH Q12H #1 inhaler Spironolactone [Aldactone 25 mg Tablet] 25 mg PO DAILY #30 MDD LAST FILLED 12/15/18 Bumetanide [Bumex 1 mg Tablet] 1 mg PO BID 30 Days #30 tablet Prednisone [Deltasone 10 mg Tablet] 10 mg PO BID 5 Days #10 tablet Ipratropium/Albuterol Sulfate [Duoneb 3 ml Ampul] 3 ml NEB [id number] PRN #30 vial.neb PRN Reason: for SOB or wheezing Levofloxacin [Levaquin 500 mg Tablet] 500 mg PO DAILY 4 Days #4 tablet Nicotine [Nicoderm 21 mg/24 Hr Transderm Patch] 1 each TD DAILY #30 patch.td24 Clopidogrel Bisulfate [Plavix 75 mg Tablet] 75 mg PO DAILY #30 tablet Lisinopril [Prinivil 5 mg Tablet] 2.5 mg PO Q12 #30 tablet Home Medications: Isosorbide Mononitrate [Imdur 30 mg Tablet.er] 30 mg PO DAILY MDD LAST FILLED 12/15/18 04/03/19 Nitroglycerin [Nitrostat 0.4 mg (1/150 Gr) Tabs 25/Bottle] 1 tab SL Q5MP PRN 04/03/19 Bumetanide [Bumex 1 mg Tablet] 1 mg PO BID 30 Days #30 tablet 04/11/19 Clopidogrel Bisulfate [Plavix 75 mg Tablet] 75 mg PO DAILY #30 tablet 04/11/19 Fluticasone/Salmeterol [Advair 100-50 Diskus 14 Dose/Diskus] 1 inh IH Q12H #1 inhaler 04/11/19 Ipratropium/Albuterol Sulfate [Duoneb 3 ml Ampul] 3 ml NEB [id number] PRN #30 vial.neb 04/11/19 Levofloxacin [Levaquin 500 mg Tablet] 500 mg PO DAILY 4 Days #4 tablet 04/11/19 Lisinopril [Prinivil 5 mg Tablet] 2.5 mg PO Q12 #30 tablet 04/11/19 Metoprolol Succinate [Toprol Xl 25 mg Tab.sr] 25 mg PO DAILY #30 MDD LAST FILLED 12/15/18 04/11/19 Nicotine [Nicoderm 21 mg/24 Hr Transderm Patch] 1 each TD DAILY #30 patch.td24 04/11/19 Prednisone [Deltasone 10 mg Tablet] 10 mg PO BID 5 Days #10 tablet 04/11/19 Spironolactone [Aldactone 25 mg Tablet] 25 mg PO DAILY #30 MDD LAST FILLED 12/15/18 04/11/19 History of Present Illiness History of Present Illness: Admitting hospitalist's H&P: BERNICE KHAN is a 58 year old male who presents the emergency room with acute dyspnea. He admits developing severe dyspnea short time before his arrival in the emergency room. His dyspnea was worsened by any activity or exertion and was accompanied by severe air hunger, increase in swelling of his bilateral his lower extremities and orthopnea. He denies other associated or accompanying signs and symptoms. He denies prior similar episodes. He has not identified any additional aggravating or ameliorating factors for his acute dyspnea. EMS upon arrival found the patient have an O2 sat of 80% and treated him with CPAP in route. Upon arrival in the ER patient was converted to BiPAP and had some improvement in his respiratory status. Additionally he was given IV Lasix and had a diuresis of greater than 2000 mL noted. Patient's BNP was also noted to be elevated at greater than 4000 and he was subsequently admitted to the hospital for further evaluation and treatment. Patient is noted to be fairly uncooperative with very short answers due to his dyspnea and frequently not answering at all due to lack of cooperation. Hospital Course Hospital Course: This is a 58-year-old male who was admitted for acute on chronic respiratory failure secondary to CHF exacerbation, COPD and pneumonia. Patient was started on IV steroids, antibiotics and breathing treatments. He was placed on BiPAP. He was also started on dobutamine drip by cardiology. He was also started on IV Bumex. He was eventually weaned off dobutamine drip. He was eventually weaned off dobutamine drip. His echo came back and revealed normal ejection fraction with grade 1 diastolic dysfunction. He does have pulmonary hypertension. He was weaned off BIPAP initially but later continued to require intermitted BIPAP use. He does have sleep apnea and says he uses a CPAP at home. Patient has a hearing problem but on repeated evaluation and communication, he is deemed competent. Patient was recommended to be placed to a SNF but he refused and insisted on being discharged home. He qualified for home O2. He will also be sent home with intermittent BIPAP use at home. Physical Exam Vital Signs: Temp Pulse Resp BP Pulse Ox 97.6 F 62 19 123/77 92 04/11/19 12:06 04/11/19 12:06 04/11/19 12:06 04/11/19 12:06 04/11/19 12:06 Intake & Output 04/10/19 04/11/19 04/12/19 06:59 06:59 06:59 Intake Total 480 600 Output Total 2024 2024 Balance -1545 -1425 Weight 242 lb 11.663 oz 243 lb 9.773 oz General appearance: PRESENT: no acute distress, well-developed, well-nourished Head exam: PRESENT: atraumatic, normocephalic Eye exam: PRESENT: conjunctiva pink, EOMI, PERRLA. ABSENT: scleral icterus Ear exam: PRESENT: normal external ear exam Mouth exam: PRESENT: moist, tongue midline Neck exam: ABSENT: carotid bruit, JVD, lymphadenopathy, thyromegaly Respiratory exam: PRESENT: clear to auscultation lauren. ABSENT: rales, rhonchi, wheezes Cardiovascular exam: PRESENT: RRR. ABSENT: diastolic murmur, rubs, systolic murmur Pulses: PRESENT: normal dorsalis pedis pul GI/Abdominal exam: PRESENT: normal bowel sounds, soft. ABSENT: distended, guarding, mass, organolmegaly, rebound, tenderness Rectal exam: PRESENT: deferred Extremities exam: PRESENT: +2 edema Neurological exam: PRESENT: alert, awake, oriented to person, oriented to place, oriented to time, CN II-XII grossly intact. ABSENT: motor sensory deficit Results Laboratory Results: WBC 4.9 10^3/uL (4.0-10.5) 04/11/19 10:26 RBC 4.43 10^6/uL (4.35-5.55) 04/11/19 10:26 Hgb 14.5 g/dL (13.5-17.0) 04/11/19 10:26 Hct 42.9 % (37.9-51.0) 04/11/19 10:26 MCV 97 fl (80-97) 04/11/19 10:26 MCH 32.8 pg (27.0-33.4) 04/11/19 10:26 MCHC 33.9 g/dL (32.0-36.0) 04/11/19 10:26 RDW 15.9 % (11.5-14.0) H 04/11/19 10:26 Plt Count 223 10^3/uL (150-450) 04/11/19 10:26 Lymph % (Auto) 34.3 % (13-45) 04/11/19 10:26 Wells % (Auto) 8.3 % (3-13) 04/11/19 10:26 Eos % (Auto) 2.7 % (0-6) 04/11/19 10:26 Baso % (Auto) 0.6 % (0-2) 04/11/19 10:26 Absolute Neuts (auto) 2.6 10^3/uL (1.7-8.2) 04/11/19 10:26 Absolute Lymphs (auto) 1.7 10^3/uL (0.5-4.7) 04/11/19 10:26 Absolute Monos (auto) 0.4 10^3/uL (0.1-1.4) 04/11/19 10:26 Absolute Eos (auto) 0.1 10^3/uL (0.0-0.6) 04/11/19 10:26 Absolute Basos (auto) 0.0 10^3/uL (0.0-0.2) 04/11/19 10:26 Seg Neutrophils % 54.1 % (42-78) 04/11/19 10:26 PT 13.9 SEC (11.4-15.4) 04/02/19 20:50 INR 1.07 04/02/19 20:50 APTT 27.5 SEC (23.5-35.8) 04/02/19 20:50 D-Dimer 1.15 ug/mL (0.00-0.50) H 04/02/19 20:50 Carbonic Acid 1.01 mmol/L (1.05-1.35) L 04/02/19 22:08 HCO3/H2CO3 Ratio 22:1 04/02/19 22:08 ABG pH 7.45 (7.35-7.45) 04/02/19 22:08 ABG pCO2 33.7 mmHg (35-45) L 04/02/19 22:08 ABG pO2 59.5 mmHg (80-100) L 04/02/19 22:08 ABG HCO3 23.1 mmol/L (20-24) 04/02/19 22:08 ABG Total CO2 24.1 mmol/L (23-27) 04/02/19 22:08 ABG O2 Saturation 92.2 % (94-98) L 04/02/19 22:08 ABG Base Excess -0.2 mmol/L 04/02/19 22:08 FiO2 50% 04/02/19 22:08 Sodium 135.8 mmol/L (137-145) L 04/11/19 10:26 Potassium 4.8 mmol/L (3.6-5.0) 04/11/19 10:26 Chloride 95 mmol/L (98-107) L 04/11/19 10:26 Carbon Dioxide 31 mmol/L (22-30) H 04/11/19 10:26 Anion Gap 10 (5-19) 04/11/19 10:26 BUN 49 mg/dL (7-20) H 04/11/19 10:26 Creatinine 1.21 mg/dL (0.52-1.25) 04/11/19 10:26 Est GFR ( Amer) > 60 (>60) 04/11/19 10:26 Est GFR (MDRD) Non-Af > 60 (>60) 04/11/19 10:26 Glucose 157 mg/dL (75-110) H 04/11/19 10:26 POC Glucose 99 mg/dL (70-110) 04/02/19 21:22 Hemoglobin A1c % 5.9 % (4.7-6.0) 04/04/19 05:42 Lactic Acid 1.4 mmol/L (0.7-2.1) 04/02/19 21:10 Calcium 9.6 mg/dL (8.4-10.2) 04/11/19 10:26 Magnesium 2.0 mg/dL (1.6-2.3) 04/05/19 06:25 Total Bilirubin 0.9 mg/dL (0.2-1.3) 04/07/19 04:21 Direct Bilirubin 0.3 mg/dL (0.0-0.4) 04/07/19 04:21 Neonat Total Bilirubin Not Reportable 04/07/19 04:21 Neonat Direct Bilirubin Not Reportable 04/07/19 04:21 Neonat Indirect Bili Not Reportable 04/07/19 04:21 AST 19 U/L (17-59) 04/07/19 04:21 ALT 10 U/L (<50) 04/07/19 04:21 Alkaline Phosphatase 71 U/L (38-126) 04/07/19 04:21 Creatine Kinase 31 U/L (55-170) L 04/03/19 14:15 CK-MB (CK-2) < 0.22 ng/mL (<4.55) 04/03/19 14:25 Troponin I 0.013 ng/mL 04/03/19 14:25 NT-Pro-B Natriuret Pep 307 pg/mL (<125) H 04/05/19 06:25 Total Protein 7.1 g/dL (6.3-8.2) 04/07/19 04:21 Albumin 3.8 g/dL (3.5-5.0) 04/07/19 04:21 Triglycerides 73 mg/dL (<150) 04/04/19 05:42 Cholesterol 179.99 mg/dL (0-200) 04/04/19 05:42 LDL Cholesterol Direct 118 mg/dL (<100) H 04/04/19 05:42 VLDL Cholesterol 15.0 mg/dL (10-31) 04/04/19 05:42 HDL Cholesterol 43 mg/dL (>40) 04/04/19 05:42 Lipase 57.2 U/L (23-300) 04/02/19 20:50 TSH 5.64 uIU/mL (0.47-4.68) H 04/04/19 05:42 Free T4 1.58 ng/dL (0.78-2.19) 04/04/19 05:42 Free T3 pg/mL 2.12 pg/mL (2.77-5.27) L 04/04/19 05:42 Urine Color YELLOW 04/02/19 22:04 Urine Appearance CLEAR 04/02/19 22:04 Urine pH 6.0 (5.0-9.0) 04/02/19 22:04 Ur Specific Mcdowell 1.023 04/02/19 22:04 Urine Protein 30 mg/dL (NEGATIVE) H 04/02/19 22:04 Urine Glucose (UA) NEGATIVE mg/dL (NEGATIVE) 04/02/19 22:04 Urine Ketones 20 mg/dL (NEGATIVE) H 04/02/19 22:04 Urine Blood NEGATIVE (NEGATIVE) 04/02/19 22:04 Urine Nitrite NEGATIVE (NEGATIVE) 04/02/19 22:04 Urine Bilirubin NEGATIVE (NEGATIVE) 04/02/19 22:04 Urine Urobilinogen 4.0 mg/dL (<2.0) H 04/02/19 22:04 Ur Leukocyte Esterase NEGATIVE (NEGATIVE) 04/02/19 22:04 Urine WBC (Auto) 1 /HPF 04/02/19 22:04 Urine RBC (Auto) 3 /HPF 04/02/19 22:04 U Hyaline Cast (Auto) 3 /LPF 04/02/19 22:04 Urine Bacteria (Auto) TRACE /HPF 04/02/19 22:04 Squamous Epi Cells Auto <1 /HPF 04/02/19 22:04 Urine Mucus (Auto) MOD /LPF 04/02/19 22:04 Urine Ascorbic Acid NEGATIVE (NEGATIVE) 04/02/19 22:04 Urine Opiates Screen NEGATIVE 04/02/19 22:04 Urine Methadone Screen NEGATIVE 04/02/19 22:04 Ur Barbiturates Screen NEGATIVE 04/02/19 22:04 Ur Phencyclidine Scrn NEGATIVE 04/02/19 22:04 Ur Amphetamines Screen NEGATIVE 04/02/19 22:04 U Benzodiazepines Scrn NEGATIVE 04/02/19 22:04 Urine Cocaine Screen NEGATIVE 04/02/19 22:04 U Marijuana (THC) Screen NEGATIVE 04/02/19 22:04 04/02/19 04/02/19 04/03/19 20:50 20:50 04:56 CK-MB (CK-2) 0.38 Troponin I < 0.012 < 0.012 NT-Pro-B Natriuret Pep 4680 H 04/03/19 04/03/19 04/05/19 10:09 14:25 06:25 CK-MB (CK-2) < 0.22 < 0.22 Troponin I < 0.012 0.013 NT-Pro-B Natriuret Pep 307 H Impressions: Acute Abdomen Series 04/02/19 21:29 IMPRESSION: Cardiomegaly. Retrocardiac infiltrate. Nonspecific, nonobstructive bowel gas pattern copyright 2010 [employer]- All Rights Reserved Chest/Abdomen CTA 04/02/19 23:08 IMPRESSION: Patchy areas of possible pneumonia bilaterally. Cardiomegaly with no aortic dissection or aneurysm. No pulmonary embolus. Chest X-Ray 04/06/19 00:00 IMPRESSION: 1. Patchy bilateral opacities are better detailed on prior CT chest April 03, 2019. 2. Persistent enlargement of the cardiac silhouette. Chest X-Ray 04/09/19 09:48 IMPRESSION: Bibasilar atelectasis Moderate cardiomegaly Stroke Is this a Stroke Patient?: No Acute Heart Failure - Is this a Heart Failure Patient?: No
== END 2019-04-11 17:29 | disposition home health service (06) | DRG 291 ==
LOC: ER 21:02 → EH 04-03 02:20 → 3N 04-03 03:36 → 4N 04-09 02:28
PROVIDERS: ADMIT Emergency Medicine; ATTEND Emergency Medicine
PROC: 5A09557 Assistance with Respiratory Ventilation, Greater than 96 Consecutive Hours, Continuous Positive Airway Pressure (ICD-10-PCS; principal; 2019-04-02)
DX: I11.0 Hypertensive heart disease with heart failure (principal); J96.21 Acute and chronic respiratory failure with hypoxia; J18.9 Pneumonia, unspecified organism; J44.0 Chronic obstructive pulmonary disease with (acute) lower respiratory infection; N17.9 Acute kidney failure, unspecified; J44.1 Chronic obstructive pulmonary disease with (acute) exacerbation; I50.33 Acute on chronic diastolic (congestive) heart failure; I42.9 Cardiomyopathy, unspecified; B96.20 Unspecified Escherichia coli [E. coli] as the cause of diseases classified elsewhere; B96.5 Pseudomonas (aeruginosa) (mallei) (pseudomallei) as the cause of diseases classified elsewhere; I27.20 Pulmonary hypertension, unspecified; I25.10 Atherosclerotic heart disease of native coronary artery without angina pectoris; E78.5 Hyperlipidemia, unspecified; F17.210 Nicotine dependence, cigarettes, uncomplicated; I87.8 Other specified disorders of veins; E66.01 Morbid (severe) obesity due to excess calories; Z60.2 Problems related to living alone; E78.00 Pure hypercholesterolemia, unspecified; I25.2 Old myocardial infarction; Z79.899 Other long term (current) drug therapy; Z79.02 Long term (current) use of antithrombotics/antiplatelets; Z88.6 Allergy status to analgesic agent; Z99.81 Dependence on supplemental oxygen
CPT/HCPCS: 36415; 51702; 71045; 71275; 74022; 80048; 80053; 80061; 80307; 81001; 82550; 82553; 82803; 82962; 83036; 83605; 83690; 83735; 83880; 84439; 84443; 84481; 84484; 85025; 85379; 85610; 85730; 87040; 87070; 87077; 87086; 87186; 87205; 93005; 93010; 93306; 94640; 94660; 96361; 96365; 96375; 99291; J0456; J0692; J0696; J1250; J1644; J1940; J3475; J3490; J7040; J7060; J7512; J7620

== ENCOUNTER 2019-10-13 14:47 | Emergency (ER) | payer MEDICAID ==
[2019-10-13 15:05] VITALS: BP 122/58
--- NOTE | 2019-10-13 15:14 | ER Document Report ---
ED General - General Stated Complaint: SHORTNESS OF BREATH Time Seen by Provider: 10/13/19 15:01 Primary Care Provider: SHAYAN WEST MD [Primary Care Provider] - Follow up as needed Information source: Patient Notes: 59-year-old male arrives by EMS after experiencing chest pain or shortness of breath while walking at his [facility] care home assisted living. Patient has a history of CHF COPD hypoxia pneumonia cataracts very CHEHALIS chronic anemia and chronic stasis dermatitis of bilateral legs. Patient takes Bumex Aldactone metoprolol Plavix lisinopril Imdur DuoNeb. Patient appears to be very unkept with long hair and facial hair and appears to understand questions when he can hear the question. He is so hard of hearing it takes staff a long time to yell in his left ear. Patient advises he has nausea TRAVEL OUTSIDE OF THE [place] IN LAST 30 DAYS: No - HPI Onset: This afternoon Onset/Duration: Sudden, Better Quality of pain: Achy Severity: Mild Pain Level: 1 Associated symptoms: Chest pain, Nausea, Shortness of breath, Sweating Exacerbated by: Movement Relieved by: Denies Similar symptoms previously: No Recently seen / treated by doctor: No - Related Data Allergies/Adverse Reactions: aspirin [Aspirin] Allergy (Verified 11/21/12 12:54) Past Medical History - General Information source: Patient - Social History Smoking Status: Unknown if Ever Smoked Cigarette use (# per day): No Chew tobacco use (# tins/day): No Smoking Education Provided: No Frequency of alcohol use: None Drug Abuse: None Family History: Reviewed & Not Pertinent Patient has suicidal ideation: No Patient has homicidal ideation: No - Past Medical History Cardiac Medical History: Reports: Hx Congestive Heart Failure, Hx Coronary Artery Disease, Hx Heart Attack, Hx Hypercholesterolemia, Hx Hypertension Pulmonary Medical History: Reports: Hx COPD Denies: Hx Asthma, Hx Respiratory Failure Neurological Medical History: Denies: Hx Seizures Endocrine Medical History: Denies: Hx Diabetes Mellitus Type 1, Hx Diabetes Mellitus Type 2, Hx Hyperthyroidism, Hx Hypothyroidism GI Medical History: Denies: Hx Cirrhosis, Hx Crohn's Disease, Hx Hepatitis, Hx Ulcerative Colitis Musculoskeletal Medical History: Denies Hx Arthritis, Denies Hx Gout Skin Medical History: Denies Hx Eczema, Denies Hx Psoriasis Infectious Medical History: Denies: Hx Hepatitis Past Surgical History: Reports: Hx Cardiac Catheterization - X 3, no stents Review of Systems - Review of Systems Constitutional: See HPI, Weakness EENT: No symptoms reported Cardiovascular: See HPI, Chest pain Respiratory: Short of breath Gastrointestinal: Nausea Genitourinary: No symptoms reported Male Genitourinary: No symptoms reported Musculoskeletal: No symptoms reported Skin: No symptoms reported Hematologic/Lymphatic: No symptoms reported Neurological/Psychological: No symptoms reported Physical Exam - Vital signs Vitals: Resp Pulse Ox 17 96 10/13/19 14:52 10/13/19 14:52 - General General appearance: Alert - HEENT Head: Normocephalic, Atraumatic Eyes: Normal Pupils: PERRL Sinus: Normal Nasal: Normal Mouth/Lips: Normal Mucous membranes: Normal Pharynx: Peritonsillar abscess Neck: Normal - Respiratory Respiratory status: No respiratory distress Chest status: Nontender Breath sounds: Normal Chest palpation: Normal - Cardiovascular Rhythm: Irregularly irregular - EKG with vent arrhythmia Heart sounds: Normal auscultation Murmur: No - Abdominal Inspection: Morbidly Obese Bowel sounds: Normal Tenderness: Nontender Organomegaly: No organomegaly - Rectal Tenderness: No - Genitourinary Scrotum: Other - wnl - Back Back: Normal - Extremities General upper extremity: Normal inspection, Nontender, Normal color, Normal ROM, Normal temperature General lower extremity: Normal inspection, Nontender, Normal color, Normal ROM, Normal temperature, Normal weight bearing. No: Samantha's sign - Neurological Neuro grossly intact: No - very very [place] Cognition: Normal, Confused, Other - Difficult to assess because of garbled speech and hearing deficits Jelena Coma Scale Motor: Obeys Commands Speech: Dysarthria Motor strength normal: LUE, RUE, LLE, RLE - Psychological Associated symptoms: Normal affect - Skin Skin Temperature: Warm Skin Moisture: Dry Skin Color: Other - Chronic stasis dermatitis of bilateral lower extremities Course - Vital Signs Vital signs: Temp Pulse Resp BP Pulse Ox 97.5 F 24 H 122/58 L 99 10/13/19 14:57 10/13/19 15:02 10/13/19 15:02 10/13/19 15:02 - Laboratory Result Diagrams: 10/13/19 14:59 10/13/19 14:59 Laboratory results interpreted by me: 10/13/19 10/13/19 10/13/19 14:59 14:59 14:59 RBC 3.30 L Hgb 11.3 L Hct 32.5 L MCV 98 H MCH 34.1 H Sodium 136.6 L BUN 34 H Creatinine 1.61 H Est GFR ( Amer) 53 L Est GFR (MDRD) Non-Af 44 L Glucose 128 H AST 15 L Creatine Kinase 27 L NT-Pro-B Natriuret Pep 296 H - Diagnostic Test Radiology reviewed: Reports reviewed - EKG Interpretation by Me EKG shows normal: Sinus rhythm Rhythm: Other - ventricular trigeminy and left anterior fascicular block Critical Care Note - Critical Care Note Total time excluding time spent on procedures (mins): 60 Comments: I was alerted by staff because while patient was sleeping his heart rate crept into 49 range with normal sinus bradycardia with no PVCs but when awakened his heart rate climbs into the 60s with trigeminy. Also while sleeping his O2 sats dropped to 92-90% Discharge - Discharge Clinical Impression: Sleep apnea in adult, Bradycardia CHF (congestive heart failure) Qualifiers: Heart failure type: unspecified Heart failure chronicity: acute on chronic Qualified Code(s): I50.9 - Heart failure, unspecified Condition: Good Disposition: HOME, SELF-CARE Additional Instructions: Follow-up with personal doctor this week return to ER as needed continue with medicines as prescribed keep fluids under 1 L/day. Try not to exert herself over the next 1 week Referrals: SHAYAN WEST MD [Primary Care Provider] - Follow up as needed
[2019-10-13] MEDS ORDERED: ONDANSETRON HCL INJ/PF 4 MG/2 ML SDV IV ONE (15:29)
[2019-10-13] MEDS ORDERED: BUMETANIDE INJ/PF 1 MG/4 ML SDV IV ONE (15:30)
--- NOTE | 2019-10-13 15:55 | RADIOLOGY REPORT (SQ) ---
EXAM DESCRIPTION: CHEST SINGLE VIEW IMAGES COMPLETED DATE/TIME: 10/13/2019 3:40 pm REASON FOR STUDY: sob COMPARISON: 04/09/2019 EXAM PARAMETERS: NUMBER OF VIEWS: One view. TECHNIQUE: Single frontal radiographic view of the chest acquired. RADIATION DOSE: NA LIMITATIONS: None. FINDINGS: LUNGS AND PLEURA: Increased interstitial markings at the lung bases. No pneumothorax. No large pleural effusion. MEDIASTINUM AND HILAR STRUCTURES: No masses. Contour normal. HEART AND VASCULAR STRUCTURES: Cardiomegaly with central vascular congestion. BONES: No acute findings. HARDWARE: None in the chest. OTHER: No other significant finding. IMPRESSION: Findings suggest CHF exacerbation. Infectious etiology is not excluded. TECHNICAL DOCUMENTATION: JOB ID: [id number] 2010 [employer]- All Rights Reserved Reading location - IP/workstation name: CASE
[2019-10-13 16:05] LABS: ABSOLUTE BASOPHILS # (AUTO) 0.1 10^3/uL (0.0-0.2); ABSOLUTE EOSINOPHILS # (AUTO) 0.2 10^3/uL (0.0-0.6); ABSOLUTE LYMPHOCYTES (AUTO) 1.3 10^3/uL (0.5-4.7); ABSOLUTE MONOCYTES (AUTO) 0.6 10^3/uL (0.1-1.4); ABSOLUTE NEUT (AUTO) 3.4 10^3/uL (1.7-8.2); HEMATOCRIT 32.5 % (37.9-51.0); HEMOGLOBIN 11.3 g/dL (13.5-17.0); LYMPHOCYTES % (AUTO) 23.7 % (13-45); MEAN CORPUSCULAR HEMOGLOBIN 34.1 pg (27.0-33.4); MEAN CORPUSCULAR HGB CONC 34.7 g/dL (32.0-36.0); MEAN CORPUSCULAR VOLUME 98 fl (80-97); MONOCYTES % (AUTO) 10.1 % (3-13); PLATELET COUNT 179 10^3/uL (150-450); RED CELL DISTRIBUTION WIDTH 13.7 % (11.5-14.0); SEGMENTED NEUTROPHILS % (AUTO) 61.2 % (42-78); TOTAL CELLS COUNTED % (AUTO) 100 %; WHITE BLOOD COUNT 5.6 10^3/uL (4.0-10.5)
[2019-10-13 16:07] LABS: APPEARANCE,URINE CLEAR; BILIRUBIN,URINE NEGATIVE (NEGATIVE); COLOR,URINE STRAW; GLUCOSE, URINE NEGATIVE (NEGATIVE); KETONES,URINE NEGATIVE (NEGATIVE); LEUKOCYTE ESTERASE,URINE NEGATIVE (NEGATIVE); NITRITE,URINE NEGATIVE (NEGATIVE); PROTEIN,URINE NEGATIVE (NEGATIVE); URINE SPECIFIC GRAVITY 1.006; UROBILINOGEN,URINE NEGATIVE mg/dL (<2.0)
[2019-10-13 16:16] LABS: ALBUMIN 4.1 g/dL (3.5-5.0); ALKALINE PHOSPHATASE 82 U/L (38-126); ANION GAP 8 (5-19); ASPARTATE AMINO TRANSFERASE 15 U/L (17-59); BILIRUBIN,TOTAL 0.4 mg/dL (0.2-1.3); BLOOD UREA NITROGEN 34 mg/dL (7-20); CARBON DIOXIDE 28 mmol/L (22-30); CHLORIDE 101 mmol/L (98-107); CREATINE KINASE 27 U/L (55-170); GLUCOSE 128 mg/dL (75-110); TOTAL PROTEIN 6.8 g/dL (6.3-8.2)
[2019-10-13 16:26] LABS: NT PRO BNP 296 pg/mL (<125)
[2019-10-13 16:46] LABS: TROPONIN I < 0.012 ng/mL
--- NOTE | 2019-10-13 18:08 | EKG REPORT ---
SEVERITY:- ABNORMAL ECG - SINUS RHYTHM VENTRICULAR TRIGEMINY LEFT ANTERIOR FASCICULAR BLOCK ABNRM R PROG, CONSIDER ASMI OR LEAD PLACEMENT NONSPECIFIC T ABNORMALITIES, DIFFUSE LEADS : Confirmed by: Eyad Lucas MD 13-Oct-2019 18:08:07
== END 2019-10-13 19:21 | disposition home or self-care (01) ==
LOC: ER 14:47
DX: I11.0 Hypertensive heart disease with heart failure (principal); I50.9 Heart failure, unspecified; R00.1 Bradycardia, unspecified; G47.30 Sleep apnea, unspecified; I44.4 Left anterior fascicular block; J44.9 Chronic obstructive pulmonary disease, unspecified; R00.8 Other abnormalities of heart beat; R47.1 Dysarthria and anarthria; I87.2 Venous insufficiency (chronic) (peripheral); R11.0 Nausea; R06.02 Shortness of breath; R07.9 Chest pain, unspecified; R53.1 Weakness; I25.10 Atherosclerotic heart disease of native coronary artery without angina pectoris; I25.2 Old myocardial infarction; Z87.01 Personal history of pneumonia (recurrent); Z79.02 Long term (current) use of antithrombotics/antiplatelets; Z79.899 Other long term (current) drug therapy; Z88.8 Allergy status to other drugs, medicaments and biological substances
CPT/HCPCS: 93005; 99291; 96374; 96375; 36415; 82550; 85025; 80053; 81001; 84484; 83880; 71045; 93010; J3490; J2405